=== PATIENT | male | born 1960 | race African-American/Black ===

== ENCOUNTER 2017-11-22 13:11 | Outpatient (CLI) | payer OTHER ==
--- NOTE | 2017-11-22 13:49 | RAD ---
PA AND LATERAL CHEST: HISTORY: A 57-year-old male with a history of dyspnea. FINDINGS: Heart size is at the upper range of normal. There is some very borderline thickening of the major an d minor fissures bilaterally. No confluent pneumonia, overt edema, pleural effusion, or other acute process. IMPRESSION: 1. Borderline cardiomegaly. 2. No acute intrathoracic disease. 3. Atherosclerosis of the aorta. POS: OFF
== END 2017-11-22 13:12 | disposition home or self-care (01) ==
LOC: RAD 13:11
PROVIDERS: ATTEND Internal Medicine Pulmonary Disease
DX: R06.00 Dyspnea, unspecified (principal); I70.0 Atherosclerosis of aorta
CPT/HCPCS: 71046

== ENCOUNTER 2017-12-22 13:44 | Inpatient (IN) | payer OTHER ==
[2017-12-22] MEDS ORDERED: Acetaminophen 500 MG TAB ONE (14:17)
[2017-12-22 14:23] LABS: #Lymphocytes 0.3 thou/uL (1.20-3.40); #Monocytes 0.5 thou/uL (0.11-0.59); #Neutrophils 8.9 thou/uL (1.40-6.50); %Basophils 0.3 % (0.0-1.0); %Eosinophils 0.1 % (0.0-10.0); %Lymphocytes 2.7 % (21.0-51.0); %Monocytes 5.1 % (0.0-10.0); %Neutrophils 91.7 % (42.0-75.0); Hemoglobin 8.9 g/dL (14.0-18.0); Mean Corpuscular HGB CONC 29.8 g/dL (32.0-36.0); Mean Corpuscular Hemoglobin 21.8 pg (27.0-31.0); Mean Platelet Volume 8.9 fL (7.4-10.4); Platelet Count 227 thou/uL (130-400); RBC Distribution Width 15.6 % (11.5-14.5); Red Blood Cell (RBC) Count 4.09 mill/uL (4.70-6.10); White Blood Cell (WBC) Count 9.7 thou/uL (4.8-10.8)
[2017-12-22 14:39] LABS: Anisocytosis SLIGHT = 6-15 cells (100X) (0-5/hpf); Hypochromia SLIGHT = 6-15 cells (100X) (0-5/hpf); MDiff Complete? YES; Microcytosis SLIGHT = 6-15 cells (100X) (0-5/hpf); Ovalocytes SLIGHT = 2-5 cells (100X) (0-1/hpf); PLT Morphology Comment Appears Adequate; Polychromasia SLIGHT = 2-3 cells (100X) (0-2/hpf); Tear Drops SLIGHT = 2-5 cells (100X) (0-1/hpf)
[2017-12-22 14:40] LABS: ALT (SGPT) 26 U/L (8-55); AST (SGOT) 37 U/L (5-34); Albumin 3.8 g/dL (3.5-5.0); Alkaline Phosphatase 68 U/L (40-150); Anion Gap 15 mmol/L (10-20); BUN (Urea Nitrogen) 69 mg/dL (8.4-25.7); Bilirubin, Total 0.9 mg/dL (0.2-1.2); Calc. Creatinine Clearance 0 mL/min (70-130); Calcium 8.9 mg/dL (7.8-10.44); Carbon Dioxide 25 mmol/L (22-29); Chloride 105 mmol/L (98-107); Estimated GFR-MDRD 13; Globulin 3.1 g/dL (2.4-3.5); Glucose 254 mg/dL (70-105); Potassium 4.6 mmol/L (3.5-5.1); Protein, Total 6.9 g/dL (6.0-8.3); Sodium 140 mmol/L (136-145)
[2017-12-22 14:51] LABS: CKMB 4.4 ng/mL (0-6.6)
[2017-12-22 14:53] LABS: Troponin I 0.445 ng/mL (< 0.028)
--- NOTE | 2017-12-22 14:57 | RAD ---
PORTABLE CHEST 1 VIEW: Date: 12/22/17 Time: 1427 hours HISTORY: Dyspnea. FINDINGS: Comparison made with exam of 11/22/17. The heart size is borderline. New patchy areas of consolidation are seen in the right mid and lower l claribel zones. No pneumothoraces or pleural effusions are seen. IMPRESSION: Right side pneumonia. POS: H
[2017-12-22] MEDS ORDERED: cefTRIAXone\\ROCEPHIN 2 GM VIAL ONE (15:21)
[2017-12-22] MEDS ORDERED: Azithromycin 500 MG in Sodium Chloride 0.9% 250 ML 250 ML IVPB SCH (16:30)
[2017-12-22 17:32] LABS: Bilirubin Negative (Negative); Blood, Urine Trace (Negative); Clarity CLOUDY (Clear); Glucose, Urine (Dipstick) 100 mg/dL (Negative); Leukocyte Negative (Negative); Nitrite Negative (Negative); Protein, Urine (Dipstick) > or equal to 300 mg/dL (Neg-Trace); Specific Gravity, Urine 1.015 (1.002-1.036); pH, Urine 5.5 (5.0-9.0)
[2017-12-22 17:37] LABS: Bacteria/HPF None Seen HPF (None Seen); Squamous Epithelial 0-3 HPF (0-3); WBC/HPF 0-3 HPF (0-3)
[2017-12-22 17:39] LABS: Critical Call Chem Troponin I RESULT DECREASING; Troponin I 0.418 ng/mL (< 0.028)
[2017-12-22 17:42] LABS: Pathc Cast-AUWi Flag 2.76 (0-2.49)
[2017-12-22] MEDS ORDERED: Ondansetron ODT 4 MG TAB SL PRN (17:52)
[2017-12-22] MEDS ORDERED: Ondansetron HCl/PF 4 MG/2 ML Vial IVP PRN ×2 (17:52→17:57)
[2017-12-22] MEDS ORDERED: Acetaminophen 325 MG TAB PO PRN (17:57)
[2017-12-22] MEDS ORDERED: Dextrose 5% in Water 1,000 ML IV PRN (17:57)
[2017-12-22] MEDS ORDERED: Albuterol Sulfate 2.5 mg/3 ml Neb NEB PRN (17:57)
[2017-12-22] MEDS ORDERED: Acetaminophen 650 MG Suppository PR PRN (17:57)
[2017-12-22] MEDS ORDERED: Dextrose 50% Abboject 50 ML SYRINGE SLOW IVP PRN (17:57)
[2017-12-22] MEDS ORDERED: Ondansetron ODT 4 MG TAB PO PRN (17:57)
[2017-12-22 18:00] LABS: Hyaline Casts/LPF 0-3 HYALINE CAST LPF (0-3 Hyaline); Other Casts/LPF None Seen LPF (0-3 Hyaline)
[2017-12-22] MEDS ORDERED: Epoetin (ESRD) 20,000 UNITS/ML SC SCH (18:00)
[2017-12-22] MEDS: Sodium Chloride 0.9% 1,000 ML IV SCH (18:44)
--- NOTE | 2017-12-22 18:52 | ULT ---
BILATERAL RENAL ULTRASOUND: Date: 12/22/17 HISTORY: Renal failure. COMPARISON: None. TECHNIQUE: Sagittal and transverse imaging of the kidneys performed. FINDINGS: Bilaterally, no hydronephrosis. Kidneys have a normal cortical echotexture. Right kidney measures 11. 3 x 4.8 x 5.8 cm. Left kidney measures 6.5 x 11.4 x 5.3 cm. Urinary bladder is unremarkable. Bladder volume is 173 mL. IMPRESSION: No hydronephrosis. POS: PPP
[2017-12-22] MEDS: Epoetin (ESRD) 20,000 UNITS/ML SC SCH (20:44)
[2017-12-22] MEDS: Heparin 5,000 UNITS/ML VIAL SC SCH (20:44)
[2017-12-22] MEDS: Famotidine 20 MG TAB PO SCH (20:45)
[2017-12-22] MEDS ORDERED: Montelukast Sodium 10 mg Tablet PO SCH ×2 (20:45→21:00)
[2017-12-22] MEDS: HumaLOG 300 UNITS/3 ML VIAL SC PRN (20:45)
[2017-12-22] MEDS ORDERED: Labetalol 100 MG TAB PO SCH (20:45)
[2017-12-22] MEDS ORDERED: Gabapentin 300 MG CAP PO SCH (20:45)
[2017-12-22] MEDS ORDERED: hydrALAZINE 25 MG TAB PO SCH (20:45)
[2017-12-22] MEDS: hydrALAZINE 25 MG TAB PO SCH (21:17)
[2017-12-22] MEDS: Labetalol 100 MG TAB PO SCH (21:18)
[2017-12-22] MEDS: Gabapentin 300 MG CAP PO SCH (21:18)
[2017-12-22] MEDS: hydrALAZINE 20 MG/ML VIAL SLOW IVP PRN (21:20)
[2017-12-22] MEDS: Guaifenesin DM 100-10/5 ML UDCUP PO PRN (21:20)
--- NOTE | 2017-12-23 00:31 | CON ---
DATE OF CONSULTATION: 12/22/2017 HISTORY OF PRESENT ILLNESS: Mr. Daniel is a 57-year-old, black male with known history of diabetes me llitus, hypertension, chronic renal failure, and admitted for right-sided pneumonia. The patient ___ __ follows up with his director of testing at [facility]-he follows up with [facility] where his nephrol ogist is. He was told that he has chronic renal failure, stage 3. Dr. Loo has consulted me for his acute kidney injury. He has a mildly elevated CPK at the same time. REVIEW OF SYSTEMS: Positive for mild shortness of breath. Positive for right-sided chest pain, ? of fever, no nausea, no vomiting. Decreased appetite, decreased energy level. No chest pain, no gross hematuria, no dysuria, no urinary frequency, no syncopal episode. Positive for productive cough. N o hematochezia, no melena, no dysuria, no urinary frequency. MEDICATIONS: Based on the patient's memory, he is taking atorvastatin? is taking losartan 50 mg tab daily, he is taking furosemide 80 mg p.o. b.i.d., dose of the medication could not remember, amlodipi ne 10 mg tab once a day. PAST MEDICAL HISTORY: 1. Type 2 diabetes mellitus. 2. Chronic renal failure. 3. Hypertension. 4. Diabetic retinopathy. 5. Recent diagnosis of pneumonia. PAST SURGICAL HISTORY: Status post laser therapy of both eyes, status post right shoulder joint surg rosalio. 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 He is and lives in [place]. Four children. Education, high school. Smoked f or 6 years, 4 cigarettes a day. Alcohol, one six pack per weekend. No IV drug abuse. Denies any bl ood transfusion. He has had an active lifestyle. ALLERGIES: LISINOPRIL. TRAUMA: None. IMMUNIZATIONS: Not up to date. HOSPITALIZATIONS: Please see past medical history. FAMILY HISTORY: No family history of ESRD. PHYSICAL EXAMINATION: VITAL SIGNS: Blood pressure is 157/83, heart rate 90, pulse ox 96%, respiratory rate is 12. GENERAL: Awake, comfortable, not in overt distress. SKIN: Adequate turgor. HEENT: He has pale conjunctivae, anicteric sclerae. NECK: No neck mass, no carotid bruits, no JVD. CHEST: No deformities. LUNGS: Right basilar crackles. Left, clear breath sounds. HEART: Normal sinus rhythm. No murmur, no gallops, no rubs. ABDOMEN: Globular, soft, nontender, no masses. EXTREMITIES: No edema noted. Trace edema. No deformities. NEUROLOGIC: Moving extremities. No tremors. No asterixis. No ataxia. LABORATORY DATA AND X-RAY FINDINGS: On 12/22/2017, sodium 140, potassium 4.6, chloride 105, carbon d ioxide 25, BUN 69, creatinine 5.44, glucose 254, calcium 8.9. AST 37, ALT 26, alkaline phosphatase 6 8, albumin 3.8. CK 1623. Troponin I 0.418. Globulin 6.9. White count 9.7, hemoglobin 8.9. Urine protein 205. Urine creatinine 99.1. Chest x-ray, right-sided lobe pneumonia. ASSESSMENT AND PLAN: 1. Right-sided lobe pneumonia. Continue IV antibiotics. Currently on IV azithromycin. Consider ad ding other third generation cephalosporin. 2. Acute kidney injury on top of chronic renal failure. Creatinine was noted at 5.44 and back on , it was 1.1. 3. Acute kidney injury-consider hemodynamically mediated renal dysfunction. Please note that the vito goldstein has been taking furosemide and losartan, this could be contributing to the worsening dysfunctio n. I would at least start this patient IV q.6 for the next 3 days. Hold losartan and diuretic s for the moment. 4. Anemia. Start ferrous sulfate and Epogen. I also reviewed back urinalysis with this patient. We will also be ordering a renal ultrasound. There is no indication for any emergent hemodialysis. I feel it less likely that he has myoglobinuri a ATN. However, we will review the urine sediment.
[2017-12-23] MEDS: Sodium Chloride 0.9% 1,000 ML IV SCH (02:44)
[2017-12-23] MEDS: HumaLOG 300 UNITS/3 ML VIAL SC PRN ×4 (04:55→21:19)
[2017-12-23 05:23] LABS: #Lymphocytes 0.2 thou/uL (1.20-3.40); #Monocytes 0.1 thou/uL (0.11-0.59); #Neutrophils 8.3 thou/uL (1.40-6.50); %Lymphocytes 1.8 % (21.0-51.0); %Monocytes 0.7 % (0.0-10.0); %Neutrophils 97.4 % (42.0-75.0); Hemoglobin 7.6 g/dL (14.0-18.0); Mean Corpuscular Hemoglobin 22.2 pg (27.0-31.0); Mean Corpuscular Volume 74.1 fL (78.0-98.0); Mean Platelet Volume 12.1 fL (7.4-10.4); Platelet Count 204 thou/uL (130-400); RBC Distribution Width 15.4 % (11.5-14.5); Red Blood Cell (RBC) Count 3.42 mill/uL (4.70-6.10); White Blood Cell (WBC) Count 8.5 thou/uL (4.8-10.8)
[2017-12-23 05:27] LABS: Anion Gap 18 mmol/L (10-20); BUN (Urea Nitrogen) 80 mg/dL (8.4-25.7); Calc. Creatinine Clearance 19 mL/min (70-130); Calcium 8.5 mg/dL (7.8-10.44); Carbon Dioxide 20 mmol/L (22-29); Chloride 104 mmol/L (98-107); Estimated GFR-MDRD 13; Glucose 319 mg/dL (70-105); Magnesium 1.6 mg/dL (1.6-2.6); Potassium 4.8 mmol/L (3.5-5.1); Sodium 137 mmol/L (136-145)
--- NOTE | 2017-12-23 07:31 | CON ---
DATE OF CONSULTATION: 12/22/2017 HISTORY OF PRESENT ILLNESS: This is a 57-year-old -Irish gentleman, who [facility]. He had a PFT done 4 weeks ago, which shows moderately severe COPD with an F EV1 of 1.17, which is 40% predicted. Unfortunately, when he arrived, he was short of breath. He was hypoxic. His sats are 81%. Blood pressure was 170/80, pulse was 80, respiratory rate 18. Denies a ny chest pain, chills or sweats. An x-ray in the ER was taken after he was sent down there because of his persistent hypoxemia, sats n ormal at 81% showed right-sided infiltrate. Mr. Daniel has smoked half pack a day for no more than 6 years. He tells me he has quit smoking almos t 26 years ago. 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 He had a PFT which showed an abnormality. He was sent to my office 4 weeks ago to see whether he qualify for work related issues. Obviously, his PFTs showed moderately severe mixed obstructive r estrictive impairment. He was to have a followup after he was given some medicine for that. He says he barely can walk 500 feet without getting markedly short of breath. [facility] Extensive workup has been done. He was seeing a local pharmacy clinical coordinator one time and now is seeing one in [place]. Denies any previous history of pneumonia, asthma or TB. PAST MEDICAL HISTORY: Chronic renal failure, diabetes, hypertension. PAST SURGICAL HISTORY: Shoulder and hernia surgery. ALLERGIES: LISINOPRIL. ALCOHOL: Over the weekend, 6 packs a day. MEDICATIONS: His list of medicine from home had included Lasix 80 once a day, aspirin 81, ferrous fountain lfate, labetalol 100, potassium, hydralazine 100. REVIEW OF SYSTEMS: Otherwise unremarkable. PHYSICAL EXAMINATION: GENERAL: He appeared to be in mild distress. EXTREMITIES: He has 2+ ankle edema. VITAL SIGNS: Once again, his sats 81% on room air, blood pressure 170/80, pulse rate of 18, his sats improved to 94%. CHEST: Minimal crackles without any wheezing. CARDIAC: Normal S1, S2. No gallops. ABDOMEN: Soft. No masses. LABORATORY DATA AND IMAGING: White count 9000, H&H 8 and 29, platelet count 227. His creatinine is 5.4, BUN is 61. Troponin slightly elevated. BNP 710. X-ray shows right-sided infiltrate, though he clearly has no symptoms of pneumonia. IMPRESSION: 1. Right-sided infiltrate and respiratory failure, combination of fluid overload and possibly pneumo fco. 2. Diabetes. 3. Renal failure. 4. Cardiomyopathy. PLAN: Nephrology and Cardiology has been consulted. Empiric antibiotics. Once his oxygenation impr mery, he may be discharged home.
--- NOTE | 2017-12-23 08:21 | RAD ---
PA AND LATERAL VIEWS CHEST: HISTORY: Dyspnea, shortness of breath. FINDINGS/IMPRESSION: Comparison is made to the exam of previous day. Bilateral perihilar areas of airspace disease are se en. Findings on the left are new. No pneumothoraces or large effusions are identified. POS: [facility]
[2017-12-23] MEDS: hydrALAZINE 25 MG TAB PO SCH ×3 (08:56→21:19)
[2017-12-23] MEDS: Ferrous Sulfate 325 MG TAB PO SCH ×2 (08:56→16:31)
[2017-12-23] MEDS: Gabapentin 300 MG CAP PO SCH ×3 (08:56→21:18)
[2017-12-23] MEDS: Labetalol 100 MG TAB PO SCH ×2 (08:57→21:18)
[2017-12-23] MEDS: Heparin 5,000 UNITS/ML VIAL SC SCH ×3 (08:57→21:19)
[2017-12-23] MEDS ORDERED: Prevnar 13-Val Conj/PF 0.5 ML SYRINGE IM ONE (09:00)
[2017-12-23] MEDS ORDERED: Albumin 25% 25 GM/100 ML BOT IVPB ONE (09:27)
--- NOTE | 2017-12-23 10:01 | PDOC.PN ---
- Subjective Encounter Start Date: 12/23/17 Encounter Start Time: 09:30 follow up for acute hypoxemic resp failure 100% on 3l NC, no wheezing, breathing is better, no F/c, no N/V/d/C. Pulm and renal notes reviewed, appreciate their assistance. Pt tolerating steroids and nebs. justyna Abx, on cefepime and levoflox All systems reviewed and neg x as above - Objective Resuscitation Status: Resuscitation Status FULL:Full Resuscitation MAR Reviewed: Yes Vital Signs & Weight: Vital Signs (12 hours) Temp Pulse Resp BP Pulse Ox 12/23/17 08:56 96 12/23/17 07:29 98.9 F 96 22 H 161/90 H 98 12/23/17 06:34 97 12/23/17 05:15 91 20 100 12/23/17 04:00 99.1 F 91 16 161/78 H 96 12/23/17 02:04 88 18 100 12/23/17 00:55 96 12/23/17 00:22 98.4 F 85 27 H 149/65 H 96 12/22/17 22:02 89 20 95 Weight Weight 214 lb Result Diagrams: 12/23/17 04:58 12/23/17 04:58 Additional Labs: Accuchecks 12/23/17 12/22/17 04:55 20:09 POC Glucose 361 H 227 H Phys Exam - Physical Examination Constitutional: NAD HEENT: PERRLA, moist MMs, sclera anicteric, oral pharynx no lesions Neck: no nodes, no JVD, supple, full ROM Respiratory: no wheezing, no rales, clear to auscultation bilateral Cardiovascular: RRR, no significant murmur, no rub Gastrointestinal: soft, non-tender, no distention, positive bowel sounds Musculoskeletal: edema present Neurological: non-focal, normal sensation, moves all 4 limbs Lymphatic: no nodes Psychiatric: normal affect, A&O x 3 Skin: no rash, normal turgor, cap refill <2 seconds Dx/Plan (1) Acute hypoxemic respiratory failure Code(s): J96.01 - ACUTE RESPIRATORY FAILURE WITH HYPOXIA Status: Acute (2) SHELLY (acute kidney injury) Code(s): N17.9 - ACUTE KIDNEY FAILURE, UNSPECIFIED Status: Acute (3) CKD (chronic kidney disease), stage III Code(s): N18.3 - CHRONIC KIDNEY DISEASE, STAGE 3 (MODERATE) Status: Chronic (4) HTN (hypertension) Code(s): I10 - ESSENTIAL (PRIMARY) HYPERTENSION Status: Chronic Qualifiers: Hypertension type: essential hypertension Qualified Code(s): I10 - Essential (primary) hypertension (5) DM2 (diabetes mellitus, type 2) Status: Chronic Qualifiers: Diabetes mellitus assisted insulin use: without assisted use Diabetes mellitus complication status: with kidney complications Diabetes mellitus complication detail: with chronic kidney disease Chronic kidney disease stage : stage 3 (moderate) Qualified Code(s): E11.22 - Type 2 diabetes mellitus with diabetic chronic kidney disease; N18.3 - Chronic kidney disease, stage 3 ( moderate) - Plan cont current plan of care, continue antibiotics, PT/OT, 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
--- NOTE | 2017-12-23 10:10 | PRG ---
DATE OF SERVICE: 12/23/2017 SUBJECTIVE: Mr. Daniel is a 57-year-old black male who was admitted for ? pneumonia. Case discussed with Dr. Loo. He feels that this may also be fluid. He is being empirically treated for a possible pneumonia. If needed, we can resume diuretics. However, creatinine is slightly higher today. We h ave started him on salt poor albumin 25 grams IV q.6. today. In addition, his losartan is currently on hold. No other complaints. He is feeling a little better. He still has some mild shortness of b reath. PHYSICAL EXAMINATION: VITAL SIGNS: Blood pressure 161/90, heart rate 96, respiratory rate 22, temperature 98.9, pulse ox 9 8%. GENERAL: Noted to be awake, alert, comfortable, not in overt distress. SKIN: Adequate turgor. HEENT: He has slightly pale conjunctivae, anicteric sclerae. NECK: No neck mass, no carotid bruits, no JVD. CHEST: No deformities. LUNGS: Decreased breath sounds. HEART: Normal sinus rhythm. No murmur, no gallops, no rubs. ABDOMEN: Globular, soft, nontender, no masses. EXTREMITIES: Positive for edema. MEDICATIONS: 12/23/2017 - Reviewed. LABORATORY DATA: 12/23/2017 - White count 8.5, hemoglobin 7.6. Sodium 137, potassium 4.8, chloride 104, carbon dioxide 20, BUN 80, creatinine 5.68, glucose 319, calcium 8.5, magnesium 1.6. Chest x-ray of 12/23/2017 shows bilateral perihilar areas of airspace disease. No large effusion noted. ASSESSMENT AND PLAN: 1. Shortness of breath - multifactorial etiology. Possibility of -pneumonia with or without congest laura heart failure. Continue supportive care. Continue to hold ARB due to the worsening renal dysfun ction. 2. Acute kidney injury on top of chronic renal failure - superimposed prerenal azotemia. Continue s upportive care. No indication for any emergent dialytic intervention. Start salt poor albumin 25 gr ams IV q.6 hours. 3. Anemia - Epogen has been initiated with this patient. Overall, I agree with current management. Recheck base met and CBC in a.m.
--- NOTE | 2017-12-23 10:13 | PRG ---
DATE OF SERVICE: 12/23/2017 This morning, he is feeling better. He is coughing, but his sputum is relatively clear. He denied any chest pain, chills or sweats. PHYSICAL EXAMINATION: VITAL SIGNS: On examination, sats are 98-99 on 2 liters nasal O2, blood pressure 160/90, respiration 20, temperature 98, he has got 1+ ankle edema. CHEST: No wheezing or crackles. CARDIAC: Normal S1, S2, no gallops. ABDOMEN: Soft, no masses. LABORATORY DATA: White count 8000, H&H 7 and 25, platelet count 206. He has 74 segs, but no bands. Creatinine is 5, BUN is 80. His troponin is slightly elevated. IMPRESSION: 1. Presumed right-sided pneumonia. 2. Probably fluid overload. 3. Renal failure. 4. Diabetes. 5. Hypertension. PLAN: Continue neb treatments, antibiotics. X-ray today shows diffuse pulmonary infiltrates. I thi nk more than likely this is fluid overload. Decrease the steroids. I will follow. Notify Nephrology.
[2017-12-23] MEDS: Albumin 25% 25 GM/100 ML BOT IVPB SCH ×2 (12:02→17:51)
--- NOTE | 2017-12-23 13:10 | CON ---
DATE OF CONSULTATION: 12/23/2017 CARDIOLOGY CONSULTATION REASON FOR CONSULTATION: Abnormal BNP. HISTORY OF PRESENT ILLNESS: Mr. Daniel is a very pleasant 57-year-old gentleman who I first saw back in November of this year. At that time, he was seeing me for episodes of chest wade n as well as his high blood pressure. He had a nuclear stress test performed later in November that showed no evidence of reversible ischemia, but his LV was a little dilated with an EF estimated at 4 6% at rest, went up to 50% with stress, suggestive of nonischemic cardiomyopathy. He was seen again actually yesterday, at which point, he was found to have a blood pressure that was in the 200s/70s ra nge, pulse was 114 and EKG showed sinus tachycardia. He said he was on his way to see the lung docto r as well, so he went to his pulmonary appointment with a workup pending for secondary hypertension. He was later seen by Dr. Loo who found his oxygen saturations were at 81%. He had PFTs that sugges herbert COPD, so he was transferred over to the hospital emergency room for further evaluation and care. In the ER, he was found to have a fever and admitted for possible pneumonia and COPD exacerbation. He was also found to have elevated creatinine and anemia. BNP was high as well as troponin, so [facility] is being consulted for all this. PAST MEDICAL HISTORY: 1. Resistant hypertension. 2. COPD. 3. Aortic valve insufficiency, mild to moderate. 4. Presumed nonischemic cardiomyopathy with an EF of 48%. 5. Chronic renal failure. 6. Type 2 diabetes. PAST SURGICAL HISTORY: Shoulder and hernia surgery. OUTPATIENT MEDICATIONS: Reviewed: 1. Lasix 80 mg twice a day. 2. Aspirin 81 a day. 3. Ferrous sulfate. 4. Labetalol 100 mg twice a day. 5. Potassium chloride 10 mEq a day. 6. Amlodipine 10 mg a day. 7. Tresiba. 8. Albuterol inhaler. 9. Losartan 100 mg a day. 10. Gabapentin 300 mg a day. 11. Vitamin D3. 12. Hydralazine 100 mg 3 times a day. 13. Aldactone 25 mg a day. ALLERGIES: LISINOPRIL. SOCIAL HISTORY: He drinks about 6 pack a day. No tobacco or drug use. Former smoker. REVIEW OF SYSTEMS: A 12-point review of systems was done and is all negative unless stated in the hi story of present illness. PHYSICAL EXAMINATION: VITAL SIGNS: Temperature 98.0, pulse 84, respiratory rate 16, satting 98% on 2 liters nasal cannula, blood pressure 148/80. GENERAL: Alert, awake, oriented x3, in no distress. HEENT: Normocephalic, atraumatic. NECK: Supple. LUNGS: Crackles at the right lower lobe. CARDIOVASCULAR: S1, S2. No S3, no S4. No murmurs. ABDOMEN: Soft. Positive bowel sounds. EXTREMITIES: 1+ edema. LABORATORY WORK: Reviewed. CBC with a white count of 9.7, hemoglobin of 8.9, down to 7.6, platelet count of 204,000. Chemistries, creatinine went from 5.4 up to 5.6. BNP at 700. Troponin was 0.44, 0.41. CK was 1623. Normal CK-MB. UA, yellow, cloudy. IMAGING: EKG was reviewed. Chest x-ray showed a right lower lobe pneumonia. ASSESSMENT: 1. Right lower lobe pneumonia. 2. Acute kidney injury on chronic kidney disease. 3. Non-ST elevation myocardial infarction: Likely demand ischemia from both renal dysfunction and i nfectious process. 4. Poorly controlled hypertension: Decently controlled today. 5. Elevated BNP: He does have some level of left ventricular dysfunction, thought to be related to poorly controlled hypertension. 6. Pulmonary edema. PLAN: 1. More recent chest x-ray shows evidence of pulmonary edema. This with his increase in creatinine would suggest worsening LV function and just worsening edema. Clinically, it does not seem that is a cute. At this time, we will discuss with Dr. Taylor and Dr. Loo. He may need a little diuresis to see how he does. 2. Over 30 minutes of critical care were delivered at bedside. 3. We will follow.
[2017-12-23] MEDS: cefTRIAXone\\ROCEPHIN 2 GM in Sodium Chloride 0.9% 100 ML IVPB SCH (15:23)
[2017-12-23] MEDS ORDERED: HumaLOG 300 UNITS/3 ML VIAL SC SCH (18:15)
[2017-12-23] MEDS: hydrALAZINE 20 MG/ML VIAL SLOW IVP PRN (18:53)
[2017-12-23] MEDS: Famotidine 20 MG TAB PO SCH (21:18)
[2017-12-24] MEDS: Albumin 25% 25 GM/100 ML BOT IVPB SCH ×4 (00:19→17:15)
[2017-12-24] MEDS: hydrALAZINE 20 MG/ML VIAL SLOW IVP PRN (00:20)
[2017-12-24] MEDS: Guaifenesin DM 100-10/5 ML UDCUP PO PRN ×2 (00:30→21:18)
[2017-12-24] MEDS: HumaLOG 300 UNITS/3 ML VIAL SC PRN ×4 (06:04→21:21)
[2017-12-24 06:25] LABS: #Lymphocytes 0.2 thou/uL (1.20-3.40); #Monocytes 0.2 thou/uL (0.11-0.59); #Neutrophils 11.9 thou/uL (1.40-6.50); %Basophils 0.1 % (0.0-1.0); %Lymphocytes 1.8 % (21.0-51.0); %Monocytes 1.9 % (0.0-10.0); %Neutrophils 96.3 % (42.0-75.0); Hemoglobin 7.3 g/dL (14.0-18.0); Mean Corpuscular HGB CONC 30.3 g/dL (32.0-36.0); Mean Corpuscular Hemoglobin 22.1 pg (27.0-31.0); Mean Platelet Volume 11.6 fL (7.4-10.4); Platelet Count 237 thou/uL (130-400); RBC Distribution Width 15.2 % (11.5-14.5); Red Blood Cell (RBC) Count 3.29 mill/uL (4.70-6.10); White Blood Cell (WBC) Count 12.3 thou/uL (4.8-10.8)
[2017-12-24 06:31] LABS: Anion Gap 19 mmol/L (10-20); BUN (Urea Nitrogen) 105 mg/dL (8.4-25.7); Calc. Creatinine Clearance 17 mL/min (70-130); Calcium 8.8 mg/dL (7.8-10.44); Carbon Dioxide 20 mmol/L (22-29); Chloride 102 mmol/L (98-107); Estimated GFR-MDRD 11; Glucose 248 mg/dL (70-105); Potassium 4.6 mmol/L (3.5-5.1); Sodium 136 mmol/L (136-145)
[2017-12-24] MEDS: Heparin 5,000 UNITS/ML VIAL SC SCH ×3 (09:13→21:20)
[2017-12-24] MEDS: Labetalol 100 MG TAB PO SCH ×2 (09:14→21:21)
[2017-12-24] MEDS: Gabapentin 300 MG CAP PO SCH ×3 (09:14→21:20)
[2017-12-24] MEDS: Ferrous Sulfate 325 MG TAB PO SCH ×2 (09:14→17:14)
[2017-12-24] MEDS: hydrALAZINE 25 MG TAB PO SCH ×3 (09:14→21:20)
--- NOTE | 2017-12-24 11:52 | PRG ---
DATE OF SERVICE: 12/24/2017 SERVICE: Renal Medicine. SUBJECTIVE: Mr. Daniel is a 57-year-old black male who was seen for his acute kidney injury on top of his chronic renal failure. Renal function continues to worsen. He was initially admitted for possi ble pneumonia. However, chest x-ray was reviewed and suggested he may have some fluid. Cardiac echo was done, which showed a normal EF. He voices no new complaints today. PHYSICAL EXAMINATION: VITAL SIGNS: Blood pressure is 163/83, heart rate 88, respiratory rate 20, O2 sat 96%. GENERAL: Awake, alert, supine, comfortable, not in overt distress. SKIN: Adequate turgor. HEENT: Pale conjunctivae, anicteric sclerae. NECK: No neck mass, no carotid bruits, no JVD. CHEST: No deformities. LUNGS: Decreased breath sounds. HEART: Normal sinus rhythm. No murmur, no gallops or rubs. ABDOMEN: Globular, soft, nontender, no masses. EXTREMITIES: Trace edema. MEDICATIONS: Of 12/24/2017 was reviewed. LABORATORY DATA: Of 12/24/2017, shows white count of 12.3, hemoglobin 7.3. Sodium 136, potassium 4. 6, chloride 102, carbon dioxide 20, BUN 105, creatinine 6.6, glucose 248, calcium 8.8. ASSESSMENT AND PLAN: Acute kidney injury on top of his chronic renal failure, worsening renal dysfun ction. The possibility that he may have a superimposed acute tubular necrosis remains. Please note cardiac echo showed a normal EF. Due to the proteinuria, I have decided to rule out vasculitis with this patient. ANCA and ZAC will be ordered. A close differential for the worsening of renal dysfunc tion is that he may have a superimposed acute tubular necrosis. We will plan dialysis with this jael ent. Please note that I have discussed that possibility with the patient. Overall, agree with current management. We will recheck base met and CBC in a.m.
[2017-12-24] MEDS: cefTRIAXone\\ROCEPHIN 2 GM in Sodium Chloride 0.9% 100 ML IVPB SCH (15:16)
--- NOTE | 2017-12-24 15:55 | PRG ---
DATE OF SERVICE: 12/24/2017 SUBJECTIVE: The patient is doing better, breathing is better. OBJECTIVE: VITAL SIGNS: Temperature 98.9, pulse 82, respiration 16, O2 sat 99% on 2 liters, blood pressure 154/ 86. HEENT: Unremarkable. NECK: No JVD. LUNGS: Diminished breath sounds in the bases. CARDIAC: S1 and S2 regular. ABDOMEN: Soft. EXTREMITIES: Edematous. LABORATORY DATA: White blood cell count 12.3, hematocrit 24, platelet count 237. Sodium 136, potass ium 4.6, chloride 102, CO2 of 20, BUN 105, creatinine 6.6, glucose 248. ASSESSMENT: 1. Right-sided pneumonia. 2. Fluid overload. 3. Renal failure. 4. Diabetes. 5. Hypertension. PLAN: He is continuing antibiotics and steroids, in all likelihood, he will need dialysis.
--- NOTE | 2017-12-24 15:58 | PDOC.PN ---
- Subjective Encounter Start Date: 12/24/17 Encounter Start Time: 13:50 doing well. still SOB, renal me be prepping for HD No F/C, no N/V/D/C, no CP. +WILSON All systems reviewed adn neg x as above urinating well. in shower now - Objective Resuscitation Status: Resuscitation Status FULL:Full Resuscitation MAR Reviewed: Yes Vital Signs & Weight: Vital Signs (12 hours) Temp Pulse Resp BP BP Pulse Ox 12/24/17 15:12 154/73 H 12/24/17 12:53 82 16 99 12/24/17 11:22 98.9 F 84 20 154/86 H 100 12/24/17 09:14 88 12/24/17 07:59 99.1 F 88 20 163/83 H 96 12/24/17 06:37 95 12/24/17 06:35 90 18 95 12/24/17 04:00 97.3 F L 91 21 H 145/69 H 94 L Weight Weight 214 lb Result Diagrams: 12/24/17 06:10 12/24/17 06:10 Additional Labs: Accuchecks 12/24/17 12/24/17 12/23/17 11:18 05:56 20:00 POC Glucose 297 H 223 H 252 H 12/23/17 12/23/17 17:51 16:24 POC Glucose 357 H 450 H Phys Exam - Physical Examination Constitutional: NAD HEENT: PERRLA, moist MMs, sclera anicteric, oral pharynx no lesions Neck: no nodes, supple, full ROM +JVD coarse bilateral basilar rales Cardiovascular: RRR 3/6 HSM to RLSB Gastrointestinal: soft, non-tender, no distention, positive bowel sounds Musculoskeletal: edema present Neurological: non-focal, normal sensation, moves all 4 limbs Lymphatic: no nodes Psychiatric: normal affect, A&O x 3 Skin: no rash, normal turgor, cap refill <2 seconds Dx/Plan (1) Acute hypoxemic respiratory failure Code(s): J96.01 - ACUTE RESPIRATORY FAILURE WITH HYPOXIA Status: Acute (2) SHELLY (acute kidney injury) Code(s): N17.9 - ACUTE KIDNEY FAILURE, UNSPECIFIED Status: Acute (3) CKD (chronic kidney disease), stage III Code(s): N18.3 - CHRONIC KIDNEY DISEASE, STAGE 3 (MODERATE) Status: Chronic (4) HTN (hypertension) Code(s): I10 - ESSENTIAL (PRIMARY) HYPERTENSION Status: Chronic Qualifiers: Hypertension type: essential hypertension Qualified Code(s): I10 - Essential (primary) hypertension (5) DM2 (diabetes mellitus, type 2) Status: Chronic Qualifiers: Diabetes mellitus correction insulin use: without long term care pharmacist use Diabetes mellitus complication status: with kidney complications Diabetes mellitus complication detail: with chronic kidney disease Chronic kidney disease stage : stage 3 (moderate) Qualified Code(s): E11.22 - Type 2 diabetes mellitus with diabetic chronic kidney disease; N18.3 - Chronic kidney disease, stage 3 ( moderate) - Plan * .
[2017-12-24] MEDS: Famotidine 20 MG TAB PO SCH (21:20)
[2017-12-25] MEDS: Albumin 25% 25 GM/100 ML BOT IVPB SCH ×4 (00:54→17:05)
[2017-12-25 05:55] LABS: #Lymphocytes 0.3 thou/uL (1.20-3.40); #Monocytes 0.2 thou/uL (0.11-0.59); #Neutrophils 9.2 thou/uL (1.40-6.50); %Basophils 0.5 % (0.0-1.0); %Eosinophils 0.1 % (0.0-10.0); %Lymphocytes 2.9 % (21.0-51.0); %Monocytes 2.4 % (0.0-10.0); %Neutrophils 94.2 % (42.0-75.0); Hemoglobin 7.3 g/dL (14.0-18.0); Mean Corpuscular HGB CONC 30.2 g/dL (32.0-36.0); Mean Corpuscular Hemoglobin 21.9 pg (27.0-31.0); Mean Corpuscular Volume 72.4 fL (78.0-98.0); Mean Platelet Volume 11.6 fL (7.4-10.4); Platelet Count 200 thou/uL (130-400); RBC Distribution Width 15.6 % (11.5-14.5); Red Blood Cell (RBC) Count 3.32 mill/uL (4.70-6.10); White Blood Cell (WBC) Count 9.7 thou/uL (4.8-10.8)
[2017-12-25 06:06] LABS: Anion Gap 21 mmol/L (10-20); Calc. Creatinine Clearance 15 mL/min (70-130); Calcium 8.7 mg/dL (7.8-10.44); Carbon Dioxide 17 mmol/L (22-29); Chloride 99 mmol/L (98-107); Estimated GFR-MDRD 9; Glucose 330 mg/dL (70-105); Potassium 5.3 mmol/L (3.5-5.1); Sodium 132 mmol/L (136-145)
[2017-12-25 06:17] LABS: BUN (Urea Nitrogen) 125 mg/dL (8.4-25.7)
[2017-12-25] MEDS: HumaLOG 300 UNITS/3 ML VIAL SC PRN ×4 (06:17→20:11)
[2017-12-25] MEDS: Ferrous Sulfate 325 MG TAB PO SCH ×2 (08:14→16:31)
[2017-12-25] MEDS: Heparin 5,000 UNITS/ML VIAL SC SCH ×3 (08:14→20:11)
[2017-12-25] MEDS: Gabapentin 300 MG CAP PO SCH ×3 (08:14→20:10)
[2017-12-25] MEDS: hydrALAZINE 25 MG TAB PO SCH ×3 (08:15→20:10)
[2017-12-25] MEDS: Labetalol 100 MG TAB PO SCH ×2 (08:15→20:09)
[2017-12-25] MEDS ORDERED: Furosemide 100 MG/10 ML VIAL SLOW IVP SCH (11:30)
--- NOTE | 2017-12-25 11:43 | PRG ---
DATE OF SERVICE: 12/25/2017 RENAL MEDICINE SUBJECTIVE: Mr. Daniel is a 57-year-old black male who was initially admitted for pneumonia. However , further evaluation of the shortness of breath suggests he may have CHF. Of interest, a cardiac ech o showed normal EF. This morning, he is complaining of shortness of breath. Please note we are foll owing up this patient for his acute kidney injury on top of his chronic renal failure. His renal ult rasound did not show any obstruction. In addition, the urinalysis showed urine protein was greater t nath 300. His renal function continues to worsen. Due to the shortness of breath, we will give him one-time dose of Lasix 80 mg IV daily. Please note that I have discussed the dialysis with the patient. He is still hesitant to proceed with it. 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 I will try to get in touch with silva bolden in the morning. PHYSICAL EXAMINATION: VITAL SIGNS: Blood pressure 168/84, heart rate 70, respiratory rate 20, temperature 98, pulse ox 95% . GENERAL: Noted to be awake, sitting comfortable, not in overt distress. SKIN: Adequate turgor. HEENT: He has slightly pale conjunctivae, anicteric sclerae. NECK: No neck mass, no carotid bruits, no JVD. CHEST: No deformities. LUNGS: Decreased breath sounds. No wheezing, no crackles. HEART: Normal sinus rhythm. No murmur, no gallops, no rubs. ABDOMEN: Globular, soft, nontender. EXTREMITIES: Positive for edema. MEDICATIONS: Medications of 12/25/2017 was reviewed. LABORATORY DATA: Laboratories of 12/25/2017; white count 9.7, hemoglobin 7.3. Sodium 132, potassium 5.3, chloride 99, carbon dioxide 17, BUN 125, creatinine 7.48, calcium 8.7. ASSESSMENT AND PLAN: 1. Acute kidney injury on top of his chronic renal failure - consideration for hemodynamically media herbert renal dysfunction versus early acute tubular necrosis. Lasix 80 mg IV x1 dose will be given. I did discuss about dialysis. The patient says him to initiate dialysis without any talking with his n ephrologist. 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 Richmond tomorrow when his office is [facility]. I asked the to text me the office number of his track subway repair supervisor. 2. Shortness of breath, multifactorial etiology. Initially, thought he may have pneumonia. He is b eing empirically treated with antibiotics. However, congestive heart failure is consideration. We w ill give a one-time dose of Lasix 80 mg IV now. 3. Anemia, started on weekly Epogen. Overall, agree with current management.
--- NOTE | 2017-12-25 13:09 | PRG ---
DATE OF SERVICE: 12/25/2017 SUBJECTIVE: The patient feels better. He says he cannot breathe as long as he is wearing the oxygen . PHYSICAL EXAMINATION: VITAL SIGNS: Temperature 98.0, pulse 78, respirations 20, O2 sat 95% on 2 liters, blood pressure 160 /84. HEENT: Unremarkable. NECK: No adenopathy, JVD, or bruits. LUNGS: Inspiratory crackles both bases. CARDIOVASCULAR: S1, S2 regular. ABDOMEN: Soft. EXTREMITIES: Edematous. LABORATORY DATA: White blood cell count 9.7, hematocrit 24.1, platelet count 200. Sodium 132, potas sium 5.3, chloride 99, CO2 of 17, BUN 125, creatinine 7.4, glucose 330. ASSESSMENT: 1. Progressive acute on chronic renal failure. 2. Right-sided pneumonia. 3. Fluid overload. 4. Diabetes. PLAN: My guess would be what we are looking at is fluid overload. He will need dialysis at some poi nt. He is continuing antibiotics for the time being, although I think this is more fluid than anythi ng else. From my standpoint, he can be transferred out to the telemetry unit or the medical floor.
[2017-12-25] MEDS: cefTRIAXone\\ROCEPHIN 2 GM in Sodium Chloride 0.9% 100 ML IVPB SCH (14:52)
--- NOTE | 2017-12-25 15:32 | PDOC.PN ---
- Subjective Encounter Start Date: 12/25/17 Encounter Start Time: 11:15 - Objective Resuscitation Status: Resuscitation Status FULL:Full Resuscitation MAR Reviewed: Yes Vital Signs & Weight: Vital Signs (12 hours) Temp Pulse Resp BP BP BP Pulse Ox 12/25/17 14:52 81 12/25/17 14:50 97.6 F 81 18 168/91 H 97 12/25/17 13:34 76 16 12/25/17 10:58 98.0 F 78 20 168/84 H 95 12/25/17 10:00 78 162/90 H 12/25/17 08:15 81 175/85 H 12/25/17 08:00 95 12/25/17 07:58 81 15 96 12/25/17 07:38 93 L 12/25/17 07:07 98.3 F 78 18 155/79 H 93 L 12/25/17 03:58 97.9 F 79 20 150/78 H 90 L Weight Weight 214 lb I&O: 12/24/17 12/25/17 12/26/17 06:59 06:59 06:59 Intake Total 750 840 Output Total 600 Balance 150 840 Result Diagrams: 12/25/17 05:39 12/25/17 05:39 Additional Labs: Accuchecks 12/25/17 12/25/17 12/24/17 10:51 05:30 21:06 POC Glucose 411 H 332 H 296 H 12/24/17 17:19 POC Glucose 383 H Phys Exam - Physical Examination Constitutional: NAD HEENT: PERRLA, moist MMs, sclera anicteric, oral pharynx no lesions NC in place Neck: no nodes, no JVD, supple, full ROM Respiratory: no rales, no rhonchi slightly prolong exp, exp wheezes, bibasialr rales Cardiovascular: RRR, no significant murmur, no rub Gastrointestinal: soft, non-tender, no distention, positive bowel sounds Musculoskeletal: edema present Neurological: non-focal, normal sensation, moves all 4 limbs Lymphatic: no nodes Psychiatric: normal affect, A&O x 3 Skin: no rash, normal turgor, cap refill <2 seconds Dx/Plan (1) Acute hypoxemic respiratory failure Code(s): J96.01 - ACUTE RESPIRATORY FAILURE WITH HYPOXIA Status: Acute Comment: secondary to volume overload, CAP (2) SHELLY (acute kidney injury) Code(s): N17.9 - ACUTE KIDNEY FAILURE, UNSPECIFIED Status: Acute Comment: with met acidosis and volume overload. 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
[2017-12-25] MEDS ORDERED: Insulin Glargine 10 UNITS in Pre-Filled Syringe 1 EACH SC SCH (15:45)
[2017-12-25 15:50] LABS: ANA Symphony (Qualitative) Negative (Negative); dsDNA IgG Antibody Less than 0.5 IU/mL (<10 Negative)
[2017-12-25] MEDS ORDERED: NIFEdipine XL 30 MG TAB PO SCH (16:30)
[2017-12-25] MEDS ORDERED: DOPamine 400 MG/D5W 250 ML 250 ML ONE (18:18)
--- NOTE | 2017-12-25 18:36 | PDOC.EVN ---
Event Note - Event Note Event Note: see tiffani elmer record. tiffani payne called dustin 1800. Pt was being trasnferred to floor to [facility], and on route, he cebame unresponsive. Eval on arrival showel low BP, and fluids were initially started. repeat BP was elevate dinstead, fluids stops. bt was incontinent, but no tonic-clonic acitvity. he spontaneously came to, Ox3, about 20 minutes later. BMP, CBC, cardiac provile, prolactin, mag are pending
[2017-12-25 18:56] LABS: Anion Gap 23 mmol/L (10-20); Calc. Creatinine Clearance 14 mL/min (70-130); Calcium 8.7 mg/dL (7.8-10.44); Carbon Dioxide 18 mmol/L (22-29); Chloride 98 mmol/L (98-107); Estimated GFR-MDRD 8; Glucose 341 mg/dL (70-105); Magnesium 2.3 mg/dL (1.6-2.6); Potassium 5.1 mmol/L (3.5-5.1); Sodium 134 mmol/L (136-145)
[2017-12-25 19:00] LABS: Hemoglobin 7.6 g/dL (14.0-18.0); Mean Corpuscular HGB CONC 30.6 g/dL (32.0-36.0); Mean Corpuscular Volume 71.8 fL (78.0-98.0); Mean Platelet Volume 7.7 fL (7.4-10.4); Platelet Count 225 thou/uL (130-400); RBC Distribution Width 15.4 % (11.5-14.5); Red Blood Cell (RBC) Count 3.47 mill/uL (4.70-6.10); White Blood Cell (WBC) Count 9.6 thou/uL (4.8-10.8)
[2017-12-25 19:03] LABS: Troponin I 0.071 ng/mL (< 0.028)
[2017-12-25 19:07] LABS: BUN (Urea Nitrogen) 140 mg/dL (8.4-25.7)
[2017-12-25 19:08] LABS: CKMB 14.6 ng/mL (0-6.6)
[2017-12-25 19:24] LABS: #Basophils 0.1 thou/uL (0.0-0.2); #Lymphocytes 0.5 thou/uL (1.20-3.40); #Monocytes 0.4 thou/uL (0.11-0.59); #Neutrophils 8.6 thou/uL (1.40-6.50); %Basophils 1.3 % (0.0-1.0); %Eosinophils 0.2 % (0.0-10.0); %Lymphocytes 5.2 % (21.0-51.0); %Monocytes 3.6 % (0.0-10.0); %Neutrophils 89.7 % (42.0-75.0); Hypochromia SLIGHT = 6-15 cells (100X) (0-5/hpf); MDiff Complete? YES; Microcytosis SLIGHT = 6-15 cells (100X) (0-5/hpf); Ovalocytes MODERATE= 6-15 cells (100X) (0-1/hpf); PLT Morphology Comment Appears Adequate; Polychromasia SLIGHT = 2-3 cells (100X) (0-2/hpf)
[2017-12-25] MEDS: Famotidine 20 MG TAB PO SCH (20:11)
[2017-12-26] MEDS: Albumin 25% 25 GM/100 ML BOT IVPB SCH ×2 (00:37→05:34)
[2017-12-26] MEDS ORDERED: Furosemide 40 MG/4 ML VIAL SLOW IVP SCH (02:15)
[2017-12-26 04:45] LABS: Anion Gap 25 mmol/L (10-20); Calc. Creatinine Clearance 13 mL/min (70-130); Calcium 8.5 mg/dL (7.8-10.44); Carbon Dioxide 18 mmol/L (22-29); Chloride 97 mmol/L (98-107); Estimated GFR-MDRD 8; Glucose 370 mg/dL (70-105); Potassium 5.8 mmol/L (3.5-5.1); Sodium 134 mmol/L (136-145)
[2017-12-26 04:57] LABS: BUN (Urea Nitrogen) 157 mg/dL (8.4-25.7)
[2017-12-26 05:09] LABS: Anisocytosis SLIGHT = 6-15 cells (100X) (0-5/hpf); Hemoglobin 6.9 g/dL (14.0-18.0); Hypochromia MODERATE=16-30 cells (100X) (0-5/hpf); Lymphocytes 3 % (21-51); MDiff Complete? YES; Mean Corpuscular HGB CONC 30.6 g/dL (32.0-36.0); Mean Corpuscular Hemoglobin 21.8 pg (27.0-31.0); Mean Corpuscular Volume 71.4 fL (78.0-98.0); Mean Platelet Volume 10.4 fL (7.4-10.4); Monocytes 2 % (0-10); Neutrophil 95 % (42-75); Nucleated RBC 1 % (0); PLT Morphology Comment Appears Adequate; Platelet Count 203 thou/uL (130-400); Polychromasia SLIGHT = 2-3 cells (100X) (0-2/hpf); RBC Distribution Width 15.4 % (11.5-14.5); Red Blood Cell (RBC) Count 3.15 mill/uL (4.70-6.10); White Blood Cell (WBC) Count 9.3 thou/uL (4.8-10.8)
[2017-12-26] MEDS: HumaLOG 300 UNITS/3 ML VIAL SC PRN ×3 (05:35→16:44)
[2017-12-26] MEDS ORDERED: Furosemide 100 MG/10 ML VIAL IVPB SCH (08:30)
[2017-12-26] MEDS: Gabapentin 300 MG CAP PO SCH ×3 (08:37→21:06)
[2017-12-26] MEDS: Labetalol 100 MG TAB PO SCH ×2 (08:38→21:05)
[2017-12-26] MEDS: Insulin Glargine 10 UNITS in Pre-Filled Syringe 1 EACH SC SCH (08:38)
[2017-12-26] MEDS: NIFEdipine XL 30 MG TAB PO SCH ×2 (08:39→10:46)
[2017-12-26] MEDS: hydrALAZINE 25 MG TAB PO SCH ×3 (08:39→21:51)
[2017-12-26] MEDS: Ferrous Sulfate 325 MG TAB PO SCH ×2 (08:40→16:16)
[2017-12-26] MEDS: Heparin 5,000 UNITS/ML VIAL SC SCH ×3 (08:54→21:07)
--- NOTE | 2017-12-26 08:59 | PRG ---
DATE OF SERVICE: 12/26/2017 The patient is doing reasonably well, has no complaints except for shortness of breath. He had to be put on BiPAP last night. PHYSICAL EXAMINATION: VITAL SIGNS: His temperature is 99.8, pulse 72, blood pressure 130/84, O2 saturation 98%, blood pres sure 142/74. Total intake for 24 hours 2549, output 150. HEENT: Unremarkable. NECK: No adenopathy or JVD. LUNGS: Coarse rhonchi bilaterally. CARDIOVASCULAR: S1, S2 regular. ABDOMEN: Soft. EXTREMITIES: Edematous throughout. LABORATORY DATA: White blood cell count 9.3, hematocrit 22.5, platelet count 203. Sodium 134, potas sium 5.8, chloride 97, CO2 18, BUN 157, creatinine 8.7, glucose 396. ASSESSMENT: 1. Acute on chronic renal failure. 2. Diabetes mellitus. 3. Acute hypoxic respiratory failure secondary to fluid overload. PLAN: The bottom line is that this patient needs acute hemodialysis. He is fluid overloaded and he is not eliminating urine, otherwise. He understands that. I believe he is having vas cath placed th is morning and will undergo hemodialysis shortly thereafter.
--- NOTE | 2017-12-26 09:44 | PRG ---
DATE OF SERVICE: 12/26/2017 Mr. Daniel is a 57-year-old black male, who was seen by the Renal service for his acute kidney injury on top of his chronic renal failure. Renal function has been worsening over the last several days. Yesterday, he was found to be in volume overload. He was given a one-time dose of Lasix 80 mg. In a ddition, last night he had to be placed on BiPAP due to the worsening respiratory dysfunction. I hav e spoken again with the patient and his and they finally have agreed to proceed with dialysis. His creatinine has further worsened this morning. His creatinine now is noted at 8.79 with a BUN of 157. We have consulted Dr. Cottrell for placement of temporary dialysis catheter. The patient is complaining of some shortness of breath. OBJECTIVE: VITAL SIGNS: Blood pressure is 138/84, heart rate 72, respiratory rate 19, temperature 98.8, pulse o x 98%. GENERAL EXAM: Noted to be awake, sitting, in mild respiratory distress. SKIN: Adequate turgor. HEENT: He has pale conjunctivae, anicteric sclerae. NECK: No neck mass, no carotid bruits, no JVD. CHEST: No deformities. LUNGS: Decreased breath sounds. Positive for wheezing. HEART: Normal sinus rhythm. No murmur, no gallops, no rubs. ABDOMEN: Globular, soft, nontender, no masses. EXTREMITIES: Positive for edema. Medications of 12/26/2017 reviewed. LABORATORY DATA: Laboratories of 12/26/2017, sodium 134, potassium 4.8, chloride 97, carbon dioxide 18, BUN 157, creatinine 8.79, glucose 370, calcium 8.5, prolactin 15.44. ASSESSMENT AND PLAN: 1. Acute kidney injury on top of his chronic renal failure - we will initiate dialysis. The patient has agreed to proceed with dialysis. Surgery has been consulted for placement of a temporary dialys is catheter. We will max out fluid removal with the current dialysis regimen. 2. Anemia. The patient is currently on weekly Epogen. P.r.n. blood transfusion. 3. Acute respiratory failure. Lasix 80 mg IV was given again this morning. He will undergo dialysi s today.
[2017-12-26 10:55] LABS: HBSAg Index 0.17 S/CO (0-0.99); Hep B Surf Ag Non-Reactive S/CO (NonReactive)
[2017-12-26 10:56] LABS: Hep C IgG Ab Non-Reactive (NonReactive); Hep C Index 0.12 S/CO (0-0.79)
--- NOTE | 2017-12-26 15:16 | ULT ---
BILATERAL UPPER EXTREMITY VEIN MAPPING ULTRASOUND EXAMINATION: HISTORY: End state renal disease, dialysis access. FINDINGS: RIGHT: CEPHALIC VEIN: Proximal humerus 1.6 mm Mid 1.3 mm Distal 1.7 mm Elbow thrombosed Proximal forearm thrombosed Mid thrombosed Distal thrombosed. BASILIC VEIN: Proximal humerus 2.9 mm Mid humerus 2.6 mm Distal 3.0 mm Elbow 3.3 mm Proximal forearm 0.9 mm Mid 1.1 mm Distal 1.8 mm LEFT: CEPHALIC VEIN: Proximal humerus 4.3 mm Mid humerus 1.2 mm Distal 0.8 mm Elbow 0.9 mm Proximal forearm 0.6 mm Mid 0.8 mm Distal 0.6 mm BASILIC VEIN: Proximal humerus 5.8 mm Mid humerus 4.4 mm Distal 1.7 mm Elbow 2.6 mm Proximal forearm 0.8 mm Mid 0.5 mm Distal 0.5 mm Right brachial artery4.0 mm. Right radial artery 2.3 mm. Right ulnar artery 2.0 mm Left brachial artery 4.8 mm Left radial artery 2.1 mm Left ulnar artery 1.4 mm IMPRESSION: Vein mapping as discussed above. POS: [facility]
[2017-12-26] MEDS: cefTRIAXone\\ROCEPHIN 2 GM in Sodium Chloride 0.9% 100 ML IVPB SCH (16:15)
--- NOTE | 2017-12-26 21:04 | OP ---
PREOPERATIVE DIAGNOSIS: End-stage renal disease in need of dialysis access on BiPAP over the weekend . POSTOPERATIVE DIAGNOSIS: End-stage renal disease in need of dialysis access on BiPAP over the weeken d. PROCEDURE: Right groin Trialysis catheter. SURGEON: Dr. Srinivas Cottrell. ANESTHESIA: 1% Xylocaine. PROCEDURE: The patient at bedside, right groin was clipped of hair, prepared with ChloraPrep, draped in routine fashion. Local anesthetic was infiltrated into the skin and subcutaneous tissue and the Salinger technique, the Trialysis catheter placed and removed the J-wire, securing the catheter with 3-0 nylon suture. Sterile dressings applied. Each port aspirated for blood and flushed with heparin ized saline solution. Patient tolerated the procedure.
[2017-12-26] MEDS: Famotidine 20 MG TAB PO SCH (21:06)
--- NOTE | 2017-12-26 21:51 | HP ---
HISTORY OF PRESENT ILLNESS: Silvana Daniel is a 57-year-old black male who lives in [place]. He i s followed by Dr. Cheng. He has been admitted and seen by Dr. Taylor, admitted to the hospitalist, Dr Vcik Banuelos was also seen him. 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 He has been followed for chron ic kidney disease. Over the weekend, he has been on BiPAP. I then asked by Dr. Taylor to establish hem odialysis access. Dr. Frey has also being seen him. Plan at this time due to his acute fluid ove rload is to place a temporary dialysis catheter. He had a midline IV placed, sutures removed. Proxi mal forearm IV placed, removed. He has bandage over indicative of recent blood draws. These h ave all been removed. Plan is to place a Trialysis catheter right groin, preserve his veins for futu re dialysis access and place hemodialysis catheter, possible central line in the fistula in the next few days. The patient has had ultrasound vein mapping results of which are pending. Dr. Loo has se en him on admission, has followed him as an outpatient. 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 ALLERGIES: LISINOPRIL. TOBACCO: None. ALCOHOL: None. HOME MEDICATIONS: Include insulin, albuterol, furosemide, labetalol, amlodipine, hydralazine, losart an, ferrous sulfate, aspirin, gabapentin. SOCIAL HISTORY: Tobacco, 1/2 pack per day for more than 6 years, quit smoking 26 years ago. PAST SURGICAL HISTORY: Groin hernia as a child, shoulder surgery. PAST MEDICAL HISTORY: Chronic renal failure, diabetes, hypertension, end-stage renal disease. Dr. Patricia liao has seen him for resistant hypertension, aortic valve insufficiency, mild to moderate presumed nonischemic cardiomyopathy, EF 48%. The patient reports having had a cardiac stress test in Dr. Krishna lara's office last month that was normal. PHYSICAL EXAMINATION: VITAL SIGNS: Height 5 feet 6 inches, weight 224 pounds, 36 BMI, temperature 97.2, pulse 72, blood pr essure 131/71. HEENT: Unremarkable. LUNGS: Clear to auscultation. CARDIAC: Regular rate and rhythm without murmur or gallop. ABDOMEN: Soft, obese, nontender. EXTREMITIES: Unremarkable. LABORATORY DATA: The patient's white count 9, hemoglobin 6.9. Sodium 134, potassium 5.8, BUN 157, c reatinine 8.79, GFR 8. Marking ultrasound obtained and pending. ASSESSMENT AND PLAN: 1. End-stage renal disease in need of dialysis access. We will plan placement of temporary groin di alysis catheter. We will plan placement of a more permanent hemodialysis cuffed tunnel catheter and a central line and dialysis access peripherally in his right arm as he is left handed pending v ein mapping in the next few days. We will avoid IV access in the antecubital area. 2. Hypertension. 3. Diabetes. 4. Recent access midline, removed. 5. Obesity.
--- NOTE | 2017-12-26 23:09 | PDOC.PN ---
- Subjective Encounter Start Date: 12/26/17 Encounter Start Time: 19:00 Patient seen and examined for resp failure. No new complaints. No overnight events - Objective Resuscitation Status: Resuscitation Status FULL:Full Resuscitation MAR Reviewed: Yes Vital Signs & Weight: Vital Signs (12 hours) Temp Pulse Resp BP BP Pulse Ox 12/26/17 21:51 84 173/77 H 12/26/17 21:05 85 182/92 H 12/26/17 19:33 97.4 F L 83 36 H 182/92 H 96 12/26/17 18:16 76 24 H 95 12/26/17 16:16 76 176/85 H 12/26/17 15:30 98.0 F 73 20 159/78 H 100 12/26/17 14:45 99 12/26/17 14:42 67 28 H 99 12/26/17 14:36 66 20 149/84 H 97 12/26/17 11:49 98 Weight Weight 224 lb 12.8 oz I&O: 12/25/17 12/26/17 12/27/17 06:59 06:59 06:59 Intake Total 750 2549 674 Output Total 600 150 925 Balance 150 7219 -902 Result Diagrams: 12/26/17 04:25 12/26/17 04:25 Additional Labs: Accuchecks 12/26/17 12/26/17 12/26/17 19:55 16:39 10:35 POC Glucose 268 H 224 H 340 H 12/26/17 05:34 POC Glucose 396 H EKG Reviewed by me: Yes (Tele SR) Phys Exam - Physical Examination Constitutional: NAD Respiratory: no wheezing, no rhonchi Cardiovascular: RRR, no rub Gastrointestinal: soft, positive bowel sounds Musculoskeletal: edema present Dx/Plan - Plan DVT proph w/heparin, DVT proph w/SCDs IMPRESSION: 1. Acute hypoxic respiratory failure due to volume overload 2. SHELLY/CKD 3 / Hyperkalemia - started on dialysis 3. Elevated troponins due to demand ischemia 4. HTN/ DM2 / Anemia due to chronic renal disease s/p 1 unit PRBC 5. s/p Code green for Hypotension with Toxic Metabolic Encephalopathy PLAN: s/p dialysis with 1 unit PRBC Cont to monitor Cont Atbx/Steroids Cont other meds as below AM labs Review of Systems - Review of Systems Respiratory: negative: Cough, Dry, Shortness of Breath, Hemoptysis, SOB with Excertion, Pleuritic Pain, Sputum, Wheezing Cardiovascular: negative: chest pain, palpitations, orthopnea, paroxysmal nocturnal dyspnea, edema, light headedness, other - Medications/Allergies Allergies/Adverse Reactions: Allergies Allergy/AdvReac Type Severity Reaction Status Date / Time lisinopril Allergy Verified 12/22/17 18:04 Medications: Current Medications Acetaminophen (Tylenol) 650 mg PO Q4H PRN PRN Reason: Headache/Fever/Mild Pain (1-3) Last Admin: 12/22/17 20:45 Dose: 650 mg Acetaminophen (Tylenol) 650 mg IA Q4H PRN PRN Reason: Headache/Fever/Mild Pain (1-3) Hydrocodone Bitart/Acetaminophen (Leggett 5/325) 1 tab PO Q4H PRN PRN Reason: Moderate Pain (4-6) Hydrocodone Bitart/Acetaminophen (Leggett 5/325) 2 tab PO Q4H PRN PRN Reason: Severe Pain (7-10) Albuterol Sulfate (Ventolin) 2.5 mg NEB Q2H PRN PRN Reason: Wheezing Albuterol/Ipratropium (Duoneb) 3 ml NEB [id number] [facility] Last Admin: 12/26/17 18:16 Dose: 3 ml Dextrose/Water (Dextrose 50%) 25 gm SLOW IVP PRN PRN PRN Reason: Hypoglycemia Epoetin Eddy (Procrit) 7,500 units SC Q7D [facility] Last Admin: 12/22/17 20:44 Dose: 7,500 units Famotidine (Pepcid) 20 mg PO QPM [facility] Last Admin: 12/26/17 21:06 Dose: 20 mg Ferrous Sulfate (Feosol) 325 mg PO BID-WM [facility] Last Admin: 12/26/17 16:16 Dose: 325 mg Gabapentin (Neurontin) 600 mg PO TID [facility] Last Admin: 12/26/17 21:06 Dose: 600 mg Glucagon (Glucagon) 1 mg IM PRN PRN PRN Reason: Hypoglycemia Guaifenesin/Dextromethorphan (Robitussin Dm) 15 ml PO Q4H PRN PRN Reason: Cough Last Admin: 12/24/17 21:18 Dose: 15 ml Heparin Sodium (Porcine) (Heparin) 5,000 units SC TID [facility] Last Admin: 12/26/17 21:07 Dose: 5,000 units Hydralazine HCl (Apresoline) 100 mg PO TID [facility] Last Admin: 12/26/17 21:51 Dose: 100 mg Hydralazine HCl (Apresoline) 10 mg SLOW IVP Q4H PRN PRN Reason: SBP Greater Than 180 Last Admin: 12/24/17 00:20 Dose: 10 mg Ceftriaxone Sodium 2 gm/ (Sodium Chloride) 100 mls @ 200 mls/hr IVPB Q24HR [facility] Last Admin: 12/26/17 16:15 Dose: 100 mls Dextrose/Water (D5w) 1,000 mls @ 0 mls/hr IV .Q0M PRN PRN Reason: Hypoglycemia Levofloxacin 500 mg/ Device 100 mls @ 100 mls/hr IVPB Q2DAYS@1999 [facility] Last Admin: 12/26/17 21:02 Dose: 100 mls Insulin Glargine 10 units/ (Miscellaneous Medication) 0.1 mls @ 0 mls/hr SC QAM [facility] Last Admin: 12/26/17 08:38 Dose: 0.1 mls Insulin Human Lispro (Humalog) 0 units SC .MODERATE SLIDING SC PRN PRN Reason: Moderate Correctional Scale Last Admin: 12/26/17 16:44 Dose: 4 unit Insulin Human Lispro (Humalog) 0 units SC .BEDTIME SLIDING SC PRN PRN Reason: Bedtime Correctional Scale Last Admin: 12/25/17 20:11 Dose: 3 unit Labetalol HCl (Normodyne) 100 mg PO BID [facility] Last Admin: 12/26/17 21:05 Dose: 100 mg Methylprednisolone Sodium Succinate (Solu-Medrol) 40 mg IVP BID [facility] Last Admin: 12/26/17 21:05 Dose: 40 mg Nifedipine (Procardia Xl) 30 mg PO DAILY [facility] Last Admin: 12/26/17 10:46 Dose: Not Given Ondansetron HCl (Zofran Odt) 4 mg PO Q6H PRN PRN Reason: Nausea/Vomiting Ondansetron HCl (Zofran) 4 mg IVP Q6H PRN PRN Reason: Nausea/Vomiting Sodium Chloride (Flush - Normal Saline) 10 ml IVF Q12HR [facility] Last Admin: 12/26/17 21:06 Dose: 10 ml Sodium Chloride (Flush - Normal Saline) 10 ml IVF PRN PRN PRN Reason: Saline Flush
[2017-12-27] MEDS: hydrALAZINE 20 MG/ML VIAL SLOW IVP PRN (00:10)
[2017-12-27] MEDS: HumaLOG 300 UNITS/3 ML VIAL SC PRN ×4 (00:11→21:20)
[2017-12-27] MEDS ORDERED: cloNIDine 0.1 MG TAB PO PRN (01:41)
[2017-12-27] MEDS ORDERED: Nitroglycerin 2% Ointment 1 INCH/1 GM Packet TOP PRN (01:41)
[2017-12-27 06:03] LABS: #Lymphocytes 0.6 thou/uL (1.20-3.40); #Monocytes 0.2 thou/uL (0.11-0.59); #Neutrophils 9.1 thou/uL (1.40-6.50); Band 2 % (5-11); Elliptocytes SLIGHT = 2-5 cells (100X) (0-1/hpf); Hemoglobin 8.2 g/dL (14.0-18.0); Hypochromia SLIGHT = 6-15 cells (100X) (0-5/hpf); Lymphocytes 9 % (21-51); MDiff Complete? YES; Mean Corpuscular HGB CONC 30.7 g/dL (32.0-36.0); Mean Corpuscular Hemoglobin 22.3 pg (27.0-31.0); Mean Corpuscular Volume 72.7 fL (78.0-98.0); Mean Platelet Volume 10.8 fL (7.4-10.4); Microcytosis SLIGHT = 6-15 cells (100X) (0-5/hpf); Monocytes 4 % (0-10); Neutrophil 85 % (42-75); PLT Morphology Comment Appears Adequate; Platelet Count 173 thou/uL (130-400); RBC Distribution Width 16.2 % (11.5-14.5); Red Blood Cell (RBC) Count 3.68 mill/uL (4.70-6.10)
[2017-12-27 06:04] LABS: Anion Gap 22 mmol/L (10-20); Calc. Creatinine Clearance 13 mL/min (70-130); Calcium 8.7 mg/dL (7.8-10.44); Carbon Dioxide 20 mmol/L (22-29); Chloride 98 mmol/L (98-107); Estimated GFR-MDRD 8; Glucose 249 mg/dL (70-105); Iron 23 ug/dL (65-175); Iron Binding Capacity, Total 156 mcg/dL (261-462); Potassium 5.3 mmol/L (3.5-5.1); Sodium 135 mmol/L (136-145)
[2017-12-27 06:17] LABS: BUN (Urea Nitrogen) 156 mg/dL (8.4-25.7)
[2017-12-27] MEDS ORDERED: Heparin 10,000 UNITS/ 10 ML VIAL ONE ×2 (07:58→09:00)
[2017-12-27] MEDS: Insulin Glargine 10 UNITS in Pre-Filled Syringe 1 EACH SC SCH (09:54)
--- NOTE | 2017-12-27 10:23 | PRG ---
DATE OF SERVICE: 12/27/2017 SUBJECTIVE: Mr. Daniel is a 57-year-old black male who was admitted for acute kidney injury over chr onic renal failure. My feeling is that I think he has a progressive renal dysfunction from underlyin g diabetic nephropathy. We have initiated hemodialysis for volume overload. This morning, he is fee ling a little better. He denies any chest pain. PHYSICAL EXAMINATION: VITAL SIGNS: Blood pressure is 180/92, heart rate 76, respiratory rate 21, temperature 97.8, pulse o x 97%. GENERAL: Noted to be awake, alert, comfortable, not in distress. SKIN: Adequate turgor. HEENT: He has slightly pale conjunctivae, anicteric sclerae. NECK: No neck mass, no carotid bruits, no JVD. CHEST: No deformities. LUNGS: Clear breath sounds. No wheezing or crackles. HEART: Normal sinus rhythm. No murmur, no gallops or rubs. ABDOMEN: Globular, soft, nontender, no masses. EXTREMITIES: Positive for edema. MEDICATIONS: 12/27/2017 - Reviewed. LABORATORY DATA: 12/27/2017 - White count 10, hemoglobin 8.2. Sodium 135, potassium 5.3, chloride 9 8, carbon dioxide 20, BUN 156, creatinine 8.66. Iron 23, calcium 8.7. ASSESSMENT AND PLAN: 1. Chronic renal failure - the patient initiated on dialysis due to volume overload and due to the p rogressive azotemia. I have scheduled him for another 2-hour hemodialysis today. We will attempt to remove 3 liters of fluid as tolerated by the patient. 2. Anemia, he received 1 unit packed RBC yesterday. Continue weekly Epogen. 3. Congestive heart failure. Maxing out fluid removal with dialysis. Overall I agree with current management. We will recheck base met and CBC in a.m.
--- NOTE | 2017-12-27 12:25 | PRG ---
DATE OF SERVICE: 12/27/2017 SERVICE: Pulmonary Medicine. INTERVAL HISTORY: The patient is doing outstanding from a respiratory standpoint. He has made significant progress over the past several days. He did not require any BiPAP last night. He denies any current fevers or chills. He is coughing up a little bit of white phlegm. There is nothing with color to it. Otherwise, he is finally able to get a little bit of rest. OBJECTIVE: VITAL SIGNS: Afebrile, pulse 81, blood pressure 180/89, respirations 24, saturation 91% on 2-1/2 liters nasal cannula. GENERAL: The patient is awake, alert, no apparent distress. LUNGS: Decent air entry. There is a prolonged expiratory phase with extensive crackles, and mild wheezing present. No rhonchi are appreciated. HEART: Normal rate, regular. ABDOMEN: Soft, nontender, nondistended. Bowel sounds are positive. MUSCULOSKELETAL: No cyanosis or clubbing. There is 1-2+ pitting in the bilateral lower extremities. NEUROLOGIC: Grossly nonfocal. LABORATORY DATA: WBC 10.0, hemoglobin 8.2 and stable, platelets 173,000 and down trending. Creatinine 8.66, BUN 156. Sodium 135, potassium 5.3, anion gap 22, bicarb 20. Iron 23, TIBC 156, ferritin 709. ZAC screen is negative. Urinalysis is positive for glycosuria and extensive proteinuria. Respiratory culture, blood cultures x2 remain unremarkable. IMAGING: Echocardiogram demonstrates normal ejection fraction with mild concentric left ventricular hypertrophy. Ultrasound of kidneys demonstrates no evidence of hydronephrosis. ASSESSMENT: 1. Acute hypoxic respiratory failure. 2. Chronic kidney disease. 3. Hypertension. 4. Nephrotic range proteinuria. PLAN: We will continue to dialyze the patient until he returns to euvolemia. Mucinex will be provided to see if we can help liberate some of the sputum that stuck down in his chest. From my perspective, he is stable for transition to the medical unit. He is certainly do not have any significant heart disease that we are aware of that would require telemetry at this time. HUAGN
[2017-12-27] MEDS ORDERED: CEFAZOLIN/Water 2 GM/20 ML SYRINGE SLOW IVP SCH (13:15)
[2017-12-27] MEDS: Ferrous Sulfate 325 MG TAB PO SCH ×2 (14:07→14:38)
[2017-12-27] MEDS: Gabapentin 300 MG CAP PO SCH ×3 (14:08→21:21)
[2017-12-27] MEDS: Heparin 5,000 UNITS/ML VIAL SC SCH ×3 (14:09→21:28)
[2017-12-27] MEDS: hydrALAZINE 25 MG TAB PO SCH ×3 (14:10→21:21)
[2017-12-27] MEDS: Labetalol 100 MG TAB PO SCH ×2 (14:13→21:21)
[2017-12-27] MEDS: NIFEdipine XL 30 MG TAB PO SCH (14:14)
[2017-12-27] MEDS: cefTRIAXone\\ROCEPHIN 2 GM in Sodium Chloride 0.9% 100 ML IVPB SCH (14:20)
[2017-12-27 16:16] LABS: Cytoplasmic (C-ANCA) <1:20 titer (Neg:<1:20); Myeloperoxidase AutoAbs <9.0 U/mL (0.0-9.0); Perinuclear (P-ANCA) <1:20 titer (Neg:<1:20); Proteinase-3 AutoAbs Less than 3.5 U/mL (0.0-3.5)
--- NOTE | 2017-12-27 16:19 | PRG ---
DATE OF SERVICE: 12/27/2017. SUBJECTIVE: Mr. Daniel has been dialyzing. OBJECTIVE: GENERAL: He feels much better. LUNGS: Clear. CARDIAC: Regular rate and rhythm. ABDOMEN: Soft. LABORATORY DATA: Ultrasound vein mapping revealed iatrogenic thrombus, right cephalic vein and forea rm veins due to midline and IV access and a dialysis patient, known. He has suboptimal veins in his left arm. Plan is for a left arm fistula or dialysis graft tomorrow. Also, we will plan placement of a cuffed hemodialysis catheter and a central line to preserve his veins for IV access blood drawals. The jael ent could be considered for future peritoneal dialysis.
[2017-12-27] MEDS: Famotidine 20 MG TAB PO SCH (21:22)
--- NOTE | 2017-12-27 22:30 | PDOC.PN ---
- Subjective Encounter Start Date: 12/27/17 Encounter Start Time: 14:45 Patient seen and examined for SHELLY. Undergoing dialysis. No new complaints. No overnight events - Objective Resuscitation Status: Resuscitation Status FULL:Full Resuscitation MAR Reviewed: Yes Vital Signs & Weight: Vital Signs (12 hours) Temp Pulse Resp BP BP Pulse Ox 12/27/17 21:21 85 12/27/17 19:53 98.5 F 85 16 182/86 H 93 L 12/27/17 18:20 83 20 94 L 12/27/17 15:57 98.0 F 89 25 H 177/88 H 90 L 12/27/17 14:13 88 12/27/17 14:12 90 163/79 H 12/27/17 14:10 91 163/79 H 12/27/17 13:54 87 20 95 12/27/17 11:31 97.9 F 71 24 H 188/89 H 91 L Weight Weight 215 lb 9.793 oz I&O: 12/26/17 12/27/17 12/28/17 06:59 06:59 06:59 Intake Total 2549 1034 1491 Output Total 150 1575 1900 Balance 2399 -541 -409 Result Diagrams: 12/28/17 03:57 12/28/17 03:57 Additional Labs: Accuchecks 12/27/17 12/27/17 12/27/17 20:24 16:25 10:51 POC Glucose 264 H 274 H 293 H 12/27/17 12/27/17 05:57 00:05 POC Glucose 260 H 261 H EKG Reviewed by me: Yes (Tele SR) Phys Exam - Physical Examination Constitutional: NAD Respiratory: no wheezing, no rhonchi Cardiovascular: RRR, no rub Gastrointestinal: soft, non-tender, positive bowel sounds Musculoskeletal: edema present Dx/Plan - Plan DVT proph w/SCDs IMPRESSION: 1. Acute hypoxic respiratory failure due to volume overload 2. SHELLY/CKD 3 / Hyperkalemia - started on dialysis 3. Elevated troponins due to demand ischemia 4. HTN/ DM2 / Anemia due to chronic renal disease s/p 1 unit PRBC 5. s/p Code green for Hypotension with Toxic Metabolic Encephalopathy PLAN: Dialysis per Nephro Cont Atbx/Steroids Cont current anti HTN meds Cont other meds as below AM labs Cont to monitor Review of Systems - Review of Systems Cardiovascular: negative: chest pain, palpitations, orthopnea, paroxysmal nocturnal dyspnea, edema, light headedness, other Gastrointestinal: negative: Nausea, Vomiting, Abdominal Pain, Diarrhea, Constipation, Melena, Hematochezia, Other - Medications/Allergies Allergies/Adverse Reactions: Allergies Allergy/AdvReac Type Severity Reaction Status Date / Time lisinopril Allergy Verified 12/22/17 18:04 Medications: Current Medications Acetaminophen (Tylenol) 650 mg PO Q4H PRN PRN Reason: Headache/Fever/Mild Pain (1-3) Last Admin: 12/22/17 20:45 Dose: 650 mg Acetaminophen (Tylenol) 650 mg [place] Q4H PRN PRN Reason: Headache/Fever/Mild Pain (1-3) Hydrocodone Bitart/Acetaminophen ([place] 5/325) 1 tab PO Q4H PRN PRN Reason: Moderate Pain (4-6) Hydrocodone Bitart/Acetaminophen ([place] 5/325) 2 tab PO Q4H PRN PRN Reason: Severe Pain (7-10) Albuterol Sulfate (Ventolin) 2.5 mg NEB Q2H PRN PRN Reason: Wheezing Albuterol/Ipratropium (Duoneb) 3 ml NEB [id number] [facility] Last Admin: 12/27/17 18:20 Dose: 3 ml Cefazolin Sodium (Ancef) 2 gm SLOW IVP ONCALL-OR [facility] Clonidine (Catapres) 0.1 mg PO Q6H PRN PRN Reason: SBP > 180 Last Admin: 12/27/17 02:19 Dose: 0.1 mg Dextrose/Water (Dextrose 50%) 25 gm SLOW IVP PRN PRN PRN Reason: Hypoglycemia Epoetin Eddy (Procrit) 7,500 units SC Q7D [facility] Last Admin: 12/22/17 20:44 Dose: 7,500 units Famotidine (Pepcid) 20 mg PO QPM [facility] Last Admin: 12/27/17 21:22 Dose: 20 mg Ferrous Sulfate (Feosol) 325 mg PO BID-WM [facility] Last Admin: 12/27/17 14:38 Dose: Not Given Gabapentin (Neurontin) 600 mg PO TID [facility] Last Admin: 12/27/17 21:21 Dose: 600 mg Glucagon (Glucagon) 1 mg IM PRN PRN PRN Reason: Hypoglycemia Guaifenesin/Dextromethorphan (Robitussin Dm) 15 ml PO Q4H PRN PRN Reason: Cough Last Admin: 12/24/17 21:18 Dose: 15 ml Heparin Sodium (Porcine) (Heparin) 5,000 units SC TID [facility] Last Admin: 12/27/17 21:28 Dose: 5,000 units Hydralazine HCl (Apresoline) 100 mg PO TID [facility] Last Admin: 12/27/17 21:21 Dose: 100 mg Hydralazine HCl (Apresoline) 10 mg SLOW IVP Q4H PRN PRN Reason: SBP Greater Than 180 Last Admin: 12/27/17 00:10 Dose: 10 mg Ceftriaxone Sodium 2 gm/ (Sodium Chloride) 100 mls @ 200 mls/hr IVPB Q24HR [facility] Last Admin: 12/27/17 14:20 Dose: 100 mls Dextrose/Water (D5w) 1,000 mls @ 0 mls/hr IV .Q0M PRN PRN Reason: Hypoglycemia Levofloxacin 500 mg/ Device 100 mls @ 100 mls/hr IVPB Q2DAYS@2000 [facility] Last Admin: 12/26/17 21:02 Dose: 100 mls Insulin Glargine 10 units/ (Miscellaneous Medication) 0.1 mls @ 0 mls/hr SC QAM [facility] Last Admin: 12/27/17 09:54 Dose: 0.1 mls Insulin Human Lispro (Humalog) 0 units SC .MODERATE SLIDING SC PRN PRN Reason: Moderate Correctional Scale Last Admin: 12/27/17 16:56 Dose: 6 unit Insulin Human Lispro (Humalog) 0 units SC .BEDTIME SLIDING SC PRN PRN Reason: Bedtime Correctional Scale Last Admin: 12/27/17 21:20 Dose: 3 unit Labetalol HCl (Normodyne) 100 mg PO BID [facility] Last Admin: 12/27/17 21:21 Dose: 100 mg Methylprednisolone Sodium Succinate (Solu-Medrol) 40 mg IVP BID [facility] Last Admin: 12/27/17 21:22 Dose: 40 mg Nifedipine (Procardia Xl) 30 mg PO DAILY [facility] Last Admin: 12/27/17 14:14 Dose: 30 mg Nitroglycerin (Nitro-Bid 2% Ointment) 0.5 inch TOP DAILYPRN PRN PRN Reason: FOR SBP > 180 Ondansetron HCl (Zofran Odt) 4 mg PO Q6H PRN PRN Reason: Nausea/Vomiting Ondansetron HCl (Zofran) 4 mg IVP Q6H PRN PRN Reason: Nausea/Vomiting Sodium Chloride (Flush - Normal Saline) 10 ml IVF Q12HR OBED Last Admin: 12/27/17 14:14 Dose: 10 ml Sodium Chloride (Flush - Normal Saline) 10 ml IVF PRN PRN PRN Reason: Saline Flush Last Admin: 12/27/17 14:14 Dose: 10 ml
[2017-12-28 04:31] LABS: Anion Gap 21 mmol/L (10-20); Calc. Creatinine Clearance 14 mL/min (70-130); Calcium 9.1 mg/dL (7.8-10.44); Carbon Dioxide 23 mmol/L (22-29); Chloride 97 mmol/L (98-107); Estimated GFR-MDRD 9; Glucose 263 mg/dL (70-105); Potassium 5.1 mmol/L (3.5-5.1); Sodium 136 mmol/L (136-145)
[2017-12-28 04:42] LABS: BUN (Urea Nitrogen) 143 mg/dL (8.4-25.7)
[2017-12-28 04:48] LABS: Band 8 % (5-11); Hemoglobin 8.5 g/dL (14.0-18.0); Lymphocytes 3 % (21-51); MDiff Complete? YES; Mean Corpuscular HGB CONC 31.1 g/dL (32.0-36.0); Mean Corpuscular Hemoglobin 22.4 pg (27.0-31.0); Mean Corpuscular Volume 71.9 fL (78.0-98.0); Mean Platelet Volume 7.8 fL (7.4-10.4); Metamyelocyte 2 % (0-0); Monocytes 3 % (0-10); Neutrophil 84 % (42-75); PLT Morphology Comment Appears Adequate; Platelet Count 183 thou/uL (130-400); Red Blood Cell (RBC) Count 3.81 mill/uL (4.70-6.10); White Blood Cell (WBC) Count 10.9 thou/uL (4.8-10.8)
[2017-12-28] MEDS: Labetalol 100 MG TAB PO SCH ×2 (05:30→20:32)
[2017-12-28] MEDS ORDERED: Sodium Chloride 0.9% 0 ML ONE (06:29)
[2017-12-28] MEDS ORDERED: Ioversol 68 % 50 ML VIAL ONE (06:29)
[2017-12-28] MEDS ORDERED: Heparin 10,000 UNITS/1 ML VIAL ONE (06:29)
[2017-12-28] MEDS ORDERED: Protamine Sulfate 50 MG/5 ML VIAL ONE (06:29)
[2017-12-28] MEDS ORDERED: Heparin 5,000 UNITS/ML VIAL ONE (06:29)
[2017-12-28] MEDS ORDERED: Lidocaine 2% PF Inj 2 ML VIAL ONE (06:29)
[2017-12-28] MEDS ORDERED: Bupivacaine HCl 0.5%/Epinephrine 1:200,000/PF 30 ml Vial ONE ×2 (06:29→17:04)
[2017-12-28] MEDS ORDERED: CEFAZOLIN/Water 2 GM/20 ML SYRINGE ONE (06:49)
[2017-12-28] MEDS ORDERED: Insulin Regular 300 UNITS/3 ML VIAL ONE (07:08)
[2017-12-28] MEDS ORDERED: Ketamine 50 MG/ML VIAL ONE (07:37)
[2017-12-28] MEDS ORDERED: Sodium Chloride 0.9% 20 ML ONE (08:10)
[2017-12-28] MEDS ORDERED: Promethazine HCl 25 MG/ML VIAL SLOW IVP PRN (10:29)
[2017-12-28] MEDS ORDERED: Ondansetron HCl/PF 4 MG/2 ML Vial IVP PRN (10:29)
[2017-12-28] MEDS ORDERED: Promethazine HCl 25 MG/ML VIAL IM PRN (10:29)
--- NOTE | 2017-12-28 10:56 | OP ---
DATE OF PROCEDURE: 12/28/2017 PREOPERATIVE DIAGNOSES: End-stage renal disease, left hand patient, iatrogenic thrombosis upper arm, right cephalic vein and antecubital vein secondary to a midline IV and IV access. End-stage renal d isease patient known. 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 FINDINGS: Inadequate veins during the operation. POSTOPERATIVE DIAGNOSES: End-stage renal disease, left hand patient, iatrogenic thrombosis upper arm, right cephalic vein and antecubital vein secondary to a midline IV and IV access. End-stage renal d isease patient known. 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 PROCEDURE: Placement of right IJ cuffed tunnel hemodialysis catheter, precurved angiodynamics and le ft IJ central line, ultrasound fluoroscopy used. Exploration of the left forearm vein finding an carmine dequate and stenotic left upper arm cephalic vein above the AC requiring ligation. Placing a left u pper arm prosthetic PTFE straight dialysis graft tapered 4 mm, T07 mm brachial artery of excellent qu ality and size without arteriosclerotic disease, outflow axillary vein of excellent size. Note super ficial basilic vein smaller. SURGEON: Dr. Srinivas Cottrell ANESTHESIA: Intravenous sedation and left arm regional, local 0.5% Marcaine with epinephrine, 30 mL with 2% Xylocaine, 10 mL. PROCEDURE: The patient was taken to the operating room where under regional anesthesia left arm and intravenous sedation, neck and chest and left upper extremity, axilla prepared with ChloraPrep, drape d in routine fashion. Local anesthetic infiltrated in the skin and subcutaneous tissue about the ope rative site about the head and neck. Using ultrasound guidance, the right and left internal jugular veins were cannulated with trocar catheter and J-wires threaded. Trocar catheter removed. Skin inci sed and enlarged sharply. Stab incision made over the right chest. Using the tunneling device, the precurved angiodynamics hemodialysis catheter tunneled between the two incisions, placing the fiber c uff beneath the skin exit site and Biopatch applied as catheter secured with 2 sutures of 3-0 nylon. Smaller medium sized dilators placed over the J-wire internal jugular vein removed. Dilator and pul l-away sheath placed over the J-wire in the superior vena cava. Dilator and J-wire removed. Cathete r placed with pull-away sheath. Pull-away sheath removed. Platysma approximated with 4-0 Monocryl, skin with subdermal 4-0 Monocryl. DermaGlue and sterile dressings applied as each port aspirated of blood and flushed with saline solution, heparinized saline solution 1000 units heparin per mL indicat ed volume of the port. Seldinger technique used to place a left internal jugular vein triple lumen catheter, removing the J- wire, securing the catheter 3-0 nylon suture. Biopatch sterile dressing applied. Each port aspirate d blood and flushed with saline solution. Fluoroscopic images revealed good line placement. Attention then turned to the left arm where an incision was made in the proximal volar forearm just b elow the antecubital fossa longitudinally, carried down the skin and subcutaneous tissue. Antecubita l vein dissected free. Antecubital vein on the forearm side was fibrotic although the cephalic vein looked like it potentially could be used. The patient was given 6000 units heparin intravenously and a perforating branch antecubital vein dissected free and was of adequate caliber, although not large and branches divided between clips and 4-0 silk ties and spatulated over branch points and it was in terrogated with coronary dilators, passing coronary dilators from a 2 mm to a 3.5 mm coronary dilator with some resistance in the cephalic vein above the antecubital fossa. This was due to prior IV acc ess. I then flushed it with heparin saline solution and there was extravasation indicating this vein was not useful. Thus, it was ligated. Basilic vein was not found. Thus, an incision was approxima herbert closed by approximately subcutaneous tissue with 3-0 Monocryl, skin with subdermal 4-0 Monocryl. Attention was then turned towards placement of left upper arm dialysis prosthetic graft. Incision ma de longitudinally in the distal upper arm above the antecubital fossa and carried down through skin a nd subcutaneous and the brachial artery was of good excellent size without significant arteriosclerot ic disease and controlled with Silastic loop. Incision was made in the left axilla supplementing loc al anesthetic to enable this. Incision carried down the skin and subcutaneous tissue to deep fascia. A more superficial smaller basilic vein identified and deeper was an axillary vein dissected free o f much greater size. This was of excellent caliber and size. It was controlled proximally and dista lly with Silastic vessel loops. A tunneling device Latesha-Antoine tunneler used to tunnel a tapered PTFE graft 4T07, placing the 4 mm end near the brachial artery above the antecubital fossa. The patient had very ____ been given heparin. Brachial artery was clamped proximally and distally and longitudin al arteriotomy made sharply and elongated with the Young scissors and graft tailored for length for a Cobra head anastomosis and continuous suture of 6-0 Prolene used for the graft artery anastomosis en d-to-side respectfully. Vascular clamps were released, there was good flow in the graft. Vascular c lamp placed across the graft and Surgicel applied and dry dressings applied and turned to the axilla. The axillary vein was then controlled proximally and distally with Silastic vessel loops. Longitudin al venotomy made sharply and elongated with Young scissors. Stay sutures 6-[address]. Graft tailored to length on the 7 mm end for a Cobra head anastomosis and end graft to side vein skylar stomosis created with continuous suture of 6-0 Prolene. Arterial inflow was released and there was g ood flow of venous outflow released and good hemostasis noted. Surgicel applied. The patient was gi chrissy 50 mg of protamine by Anesthesia. All skin incisions approximated by approximating subcutaneous tissues with 3-0 Monocryl, skin with subdermal 4-0 Monocryl and DermaGlue applied.
[2017-12-28] MEDS ORDERED: traMADol HCl 50 MG TAB PO PRN (11:11)
[2017-12-28] MEDS ORDERED: Acetaminophen 500 MG TAB PO PRN (11:11)
--- NOTE | 2017-12-28 11:57 | RAD ---
SEMIUPRIGHT PORTABLE CHEST ONE VIEW: HISTORY: A 57-year-old male with a history of post line placement in the OR. COMPARISON: 12/23/2017 FINDINGS: There is a right dual-lumen venous access catheter in place. There is cardiomegaly with bilateral va scular congestion and some scattered alveolar edematous changes, less marked than on the 12/23/2017 s tudy. A left jugular venous catheter is in place. No pneumothorax or pleural effusion. IMPRESSION: 1. Right dual-lumen venous access catheter and left jugular venous catheter is in place. 2. Cardiomegaly with bilateral vascular congestion and minimal bilateral edema, actually less marked than on prior study. 3. No pneumothorax or other acute process. POS: [facility]
--- NOTE | 2017-12-28 13:39 | PRG ---
DATE OF SERVICE: 12/28/2017 SERVICE: Pulmonary Medicine INTERVAL HISTORY: The patient is doing great from a respiratory standpoint. He underwent dialysis yesterday. Since then, he had no events overnight. He was transitioned out of the ICU to the Medical Unit. His cough is improving a little bit. He is able to generate some of that sputum. His lower extremity edema continues to improve. PHYSICAL EXAMINATION: VITAL SIGNS: Afebrile, pulse 69, blood pressure 148/75, respirations 18, saturation 93% on 4 liters nasal cannula. GENERAL: The patient is awake, alert, no apparent distress. LUNGS: Decent air entry. Minimal dependent crackles are present. There is no prolonged expiratory phase or wheezing present. HEART: Normal rate, regular. ABDOMEN: Soft, nontender, nondistended. Bowel sounds are positive. MUSCULOSKELETAL: No cyanosis or clubbing. There is 2+ pitting in the bilateral lower extremities. NEUROLOGIC: Grossly nonfocal. LABORATORY DATA: WBC 10.9, hemoglobin 8.5, platelets 183,000. Neutrophil count is 84% with 8% bands. Creatinine 7.85, down trending, BUN 143, down trending, anion gap 21, bicarbonate 23. Basic metabolic profile is otherwise unremarkable. ANCAs and ZAC screen are negative. Urine has significant proteinuria. Respiratory culture and blood cultures x2 are unremarkable. IMAGING: Chest x-ray demonstrates interval placement of a dual lumen vascular catheter on the right. There is a left IJ in good position. Pulmonary edema pattern persists. There is cardiomegaly noted. ASSESSMENT: 1. Acute hypoxic respiratory failure secondary to anasarca from kidney disease. 2. Chronic kidney disease. 3. Hypertension. 4. Nephrotic range proteinuria. DISCUSSION AND PLAN: Now the patient is on dialysis, his breathing has actually improved quite a bit. He is off oxygen. As such, he has no further requirements for inpatient Pulmonary or Critical Care opinion. If he develops any increasing respiratory difficulties, please call the Pulmonary Service back. HUANG
[2017-12-28] MEDS: Ferrous Sulfate 325 MG TAB PO SCH ×2 (15:05→17:16)
[2017-12-28] MEDS: Insulin Glargine 10 UNITS in Pre-Filled Syringe 1 EACH SC SCH (15:06)
[2017-12-28] MEDS: Gabapentin 300 MG CAP PO SCH ×3 (15:06→20:31)
[2017-12-28] MEDS: Heparin 5,000 UNITS/ML VIAL SC SCH ×3 (15:06→20:32)
[2017-12-28] MEDS: hydrALAZINE 25 MG TAB PO SCH ×3 (15:06→20:31)
[2017-12-28] MEDS: NIFEdipine XL 30 MG TAB PO SCH (15:07)
[2017-12-28] MEDS: cefTRIAXone\\ROCEPHIN 2 GM in Sodium Chloride 0.9% 100 ML IVPB SCH (15:32)
[2017-12-28] MEDS: HumaLOG 300 UNITS/3 ML VIAL SC PRN (17:17)
[2017-12-28] MEDS ORDERED: Heparin 10,000 UNITS/ 10 ML VIAL ONE (17:30)
[2017-12-28] MEDS ORDERED: PROPOFOL 200 MG/20 ML VIAL ONE (17:30)
[2017-12-28] MEDS: Famotidine 20 MG TAB PO SCH (20:31)
--- NOTE | 2017-12-28 23:37 | PDOC.PN ---
- Subjective Encounter Start Date: 12/28/17 Encounter Start Time: 13:00 Patient seen and examined for SHELLY. No new complaints. No overnight events - Objective Resuscitation Status: Resuscitation Status FULL:Full Resuscitation MAR Reviewed: Yes Vital Signs & Weight: Vital Signs (12 hours) Temp Pulse Resp BP BP BP Pulse Ox 12/28/17 20:32 87 174/80 H 12/28/17 20:31 87 174/80 H 12/28/17 20:00 98.5 F 88 20 174/80 H 92 L 12/28/17 19:03 78 16 96 12/28/17 17:18 174/86 H 12/28/17 15:30 98 12/28/17 15:27 87 184/76 H 12/28/17 15:20 98.3 F 87 18 184/76 H 98 12/28/17 15:07 76 12/28/17 15:06 76 Weight Weight 207 lb 14.334 oz I&O: 12/27/17 12/28/17 12/29/17 06:59 06:59 06:59 Intake Total 1034 1491 460 Output Total 1575 2050 3000 Balance -541 -559 -2540 Result Diagrams: 12/28/17 03:57 12/28/17 03:57 Additional Labs: Accuchecks 12/28/17 12/28/17 16:28 10:34 POC Glucose 175 H 261 H EKG Reviewed by me: Yes (Tele SR) Phys Exam - Physical Examination Constitutional: NAD Respiratory: no wheezing, no rhonchi Bibasilar rales Cardiovascular: RRR, no rub Gastrointestinal: soft, positive bowel sounds Musculoskeletal: edema present Neurological: moves all 4 limbs Psychiatric: A&O x 3 Dx/Plan - Plan DVT proph w/heparin, DVT proph w/SCDs IMPRESSION: 1. Acute hypoxic respiratory failure due to volume overload 2. SHELLY/CKD 3 / Hyperkalemia - started on dialysis 3. Elevated troponins due to demand ischemia 4. HTN/ DM2 / Anemia due to chronic renal disease s/p 1 unit PRBC 5. s/p Code green for Hypotension with Toxic Metabolic Encephalopathy PLAN: Cont Dialysis per Nephro Cont Atbx/Steroids Cont current meds as below AM labs Cont Lantus Cont to monitor Review of Systems - Review of Systems Respiratory: negative: Cough, Dry, Shortness of Breath, Hemoptysis, SOB with Excertion, Pleuritic Pain, Sputum, Wheezing Cardiovascular: negative: chest pain, palpitations, orthopnea, paroxysmal nocturnal dyspnea, edema, light headedness, other - Medications/Allergies Allergies/Adverse Reactions: Allergies Allergy/AdvReac Type Severity Reaction Status Date / Time lisinopril Allergy Verified 12/22/17 18:04 Medications: Current Medications Acetaminophen (Tylenol) 650 mg PO Q4H PRN PRN Reason: Headache/Fever/Mild Pain (1-3) Last Admin: 12/22/17 20:45 Dose: 650 mg Acetaminophen (Tylenol) 650 mg [place] Q4H PRN PRN Reason: Headache/Fever/Mild Pain (1-3) Acetaminophen (Tylenol) 1,000 mg PO Q6H PRN PRN Reason: Moderate to Severe Pain (6-10) Hydrocodone Bitart/Acetaminophen ([place] 5/325) 1 tab PO Q4H PRN PRN Reason: Moderate Pain (4-6) Hydrocodone Bitart/Acetaminophen ([place] 5/325) 2 tab PO Q4H PRN PRN Reason: Severe Pain (7-10) Albuterol Sulfate (Ventolin) 2.5 mg NEB Q2H PRN PRN Reason: Wheezing Albuterol/Ipratropium (Duoneb) 3 ml NEB [id number] [facility] Last Admin: 12/28/17 19:03 Dose: 3 ml Cefazolin Sodium (Ancef) 2 gm SLOW IVP ONCALL-OR [facility] Clonidine (Catapres) 0.1 mg PO Q6H PRN PRN Reason: SBP > 180 Last Admin: 12/27/17 02:19 Dose: 0.1 mg Dextrose/Water (Dextrose 50%) 25 gm SLOW IVP PRN PRN PRN Reason: Hypoglycemia Epoetin Eddy (Procrit) 7,500 units SC Q7D [facility] Last Admin: 12/22/17 20:44 Dose: 7,500 units Famotidine (Pepcid) 20 mg PO QPM [facility] Last Admin: 12/28/17 20:31 Dose: 20 mg Ferrous Sulfate (Feosol) 325 mg PO BID-WM [facility] Last Admin: 12/28/17 17:16 Dose: 325 mg Gabapentin (Neurontin) 600 mg PO TID [facility] Last Admin: 12/28/17 20:31 Dose: 600 mg Glucagon (Glucagon) 1 mg IM PRN PRN PRN Reason: Hypoglycemia Guaifenesin/Dextromethorphan (Robitussin Dm) 15 ml PO Q4H PRN PRN Reason: Cough Last Admin: 12/24/17 21:18 Dose: 15 ml Heparin Sodium (Porcine) (Heparin) 5,000 units SC TID [facility] Last Admin: 12/28/17 20:32 Dose: 5,000 units Hydralazine HCl (Apresoline) 100 mg PO TID [facility] Last Admin: 12/28/17 20:31 Dose: 100 mg Hydralazine HCl (Apresoline) 10 mg SLOW IVP Q4H PRN PRN Reason: SBP Greater Than 180 Last Admin: 12/27/17 00:10 Dose: 10 mg Ceftriaxone Sodium 2 gm/ (Sodium Chloride) 100 mls @ 200 mls/hr IVPB Q24HR [facility] Last Admin: 12/28/17 15:32 Dose: 100 mls Dextrose/Water (D5w) 1,000 mls @ 0 mls/hr IV .Q0M PRN PRN Reason: Hypoglycemia Levofloxacin 500 mg/ Device 100 mls @ 100 mls/hr IVPB Q2DAYS@2000 [facility] Last Admin: 12/28/17 20:31 Dose: 100 mls Insulin Glargine 10 units/ (Miscellaneous Medication) 0.1 mls @ 0 mls/hr SC QAM [facility] Last Admin: 12/28/17 15:06 Dose: Not Given Insulin Human Lispro (Humalog) 0 units SC .MODERATE SLIDING SC PRN PRN Reason: Moderate Correctional Scale Last Admin: 12/28/17 17:17 Dose: 2 unit Insulin Human Lispro (Humalog) 0 units SC .BEDTIME SLIDING SC PRN PRN Reason: Bedtime Correctional Scale Last Admin: 12/27/17 21:20 Dose: 3 unit Labetalol HCl (Normodyne) 100 mg PO BID [facility] Last Admin: 12/28/17 20:32 Dose: 100 mg Nifedipine (Procardia Xl) 30 mg PO DAILY [facility] Last Admin: 12/28/17 15:07 Dose: Not Given Nitroglycerin (Nitro-Bid 2% Ointment) 0.5 inch TOP DAILYPRN PRN PRN Reason: FOR SBP > 180 Ondansetron HCl (Zofran Odt) 4 mg PO Q6H PRN PRN Reason: Nausea/Vomiting Ondansetron HCl (Zofran) 4 mg IVP Q6H PRN PRN Reason: Nausea/Vomiting Sodium Chloride (Flush - Normal Saline) 10 ml IVF Q12HR [facility] Last Admin: 12/28/17 20:32 Dose: 10 ml Sodium Chloride (Flush - Normal Saline) 10 ml IVF PRN PRN PRN Reason: Saline Flush Last Admin: 12/27/17 14:14 Dose: 10 ml Tramadol HCl (Ultram) 50 mg PO Q6H PRN PRN Reason: Pain 1-5
[2017-12-29] MEDS: HYDROcodone/Acetaminophen 5/325 mg Tablet PO PRN ×3 (02:09→18:02)
[2017-12-29] MEDS: HumaLOG 300 UNITS/3 ML VIAL SC PRN (05:38)
[2017-12-29] MEDS ORDERED: Heparin 10,000 UNITS/ 10 ML VIAL ONE (08:20)
--- NOTE | 2017-12-29 10:16 | PRG ---
DATE OF SERVICE: 12/29/2017 SUBJECTIVE: Mr. Daniel is a 57-year-old black male admitted for shortness of breath. He was found to be in congestive heart failure. He is undergoing dialysis due to progressive ischemia and due to vo lume overload. I am currently at the dialysis supervising his treatment. We are attempting a 3 lite r fluid removal. His breathing is much better with fluid removal. PHYSICAL EXAMINATION: VITAL SIGNS: Blood pressure 151/66, heart rate 83, respiratory rate 20, temperature 98.9, pulse ox 9 8%. GENERAL: Awake, alert, supine, comfortable, not in distress. SKIN: Adequate turgor. HEENT: Slightly pale conjunctivae, anicteric sclerae. NECK: No neck mass, no carotid bruits, no JVD. CHEST: No deformities. LUNGS: Decreased breath sounds. HEART: Normal sinus rhythm. No murmur, no gallops or rubs. ABDOMEN: Globular, soft, nontender, no masses. EXTREMITIES: No edema, no deformities. MEDICATIONS: 12/29/2017 - Reviewed. LABORATORY: 12/28/2017 - White count 10.9, hemoglobin 8.5. Sodium 136, potassium 5.1, chloride 97, carbon dioxide 23, BUN 143, creatinine 7.85, calcium 9.1. ASSESSMENT AND PLAN: 1. Congestive heart failure - clinically improving with fluid removal with dialysis. Continue dialy sis regimen. 2. Chronic renal failure/end-stage renal disease. Hemodialysis has been initiated. My plan is to d o a 4-hour hemodialysis. Fluid removal about 3 liters will be attempted. I will now place this jael ent on 3 times a week hemodialysis. Continue supportive care.
[2017-12-29 10:22] LABS: HBSAB Concentration 1.45 mIU/mL; HBSAg Index 0.18 S/CO (0-0.99); Hep B Core Total Ab Non-Reactive (NonReactive); Hep B Core Total Index 0.08 S/CO (0-0.79); Hep B Surf AB Non-Reactive (NonReactive); Hep B Surf Ag Non-Reactive S/CO (NonReactive); Hep C IgG Ab Non-Reactive (NonReactive); Hep C Index 0.12 S/CO (0-0.79)
[2017-12-29] MEDS: Heparin 5,000 UNITS/ML VIAL SC SCH ×3 (12:55→20:37)
[2017-12-29] MEDS: Gabapentin 300 MG CAP PO SCH ×3 (14:34→20:38)
[2017-12-29] MEDS: hydrALAZINE 25 MG TAB PO SCH ×3 (14:34→20:37)
[2017-12-29] MEDS: NIFEdipine XL 30 MG TAB PO SCH (14:35)
[2017-12-29] MEDS: Ferrous Sulfate 325 MG TAB PO SCH ×2 (14:35→18:02)
[2017-12-29] MEDS: Labetalol 100 MG TAB PO SCH ×2 (14:36→20:37)
[2017-12-29] MEDS: cefTRIAXone\\ROCEPHIN 2 GM in Sodium Chloride 0.9% 100 ML IVPB SCH (14:38)
[2017-12-29] MEDS: Insulin Glargine 10 UNITS in Pre-Filled Syringe 1 EACH SC SCH (14:43)
--- NOTE | 2017-12-29 15:54 | PDOC.PN ---
- Subjective Encounter Start Date: 12/29/17 Encounter Start Time: 14:00 Patient seen and examined for Resp failure. Underwent dialysis today. No new complaints. No overnight events - Objective Resuscitation Status: Resuscitation Status FULL:Full Resuscitation MAR Reviewed: Yes Vital Signs & Weight: Vital Signs (12 hours) Temp Pulse Resp BP Pulse Ox 12/29/17 14:52 85 12/29/17 14:34 85 12/29/17 12:50 98.3 F 85 18 172/70 H 98 12/29/17 07:02 81 12/29/17 04:00 98.9 F 83 20 151/66 H 98 Weight Weight 207 lb 14.334 oz I&O: 12/28/17 12/29/17 12/30/17 06:59 06:59 06:59 Intake Total 1491 1040 Output Total 0 3000 Balance -559 -0349 Result Diagrams: 12/28/17 03:57 12/28/17 03:57 Additional Labs: Accuchecks 12/29/17 12/29/17 12/28/17 13:00 04:28 20:19 POC Glucose 124 H 267 H 199 H 12/28/17 16:28 POC Glucose 175 H Phys Exam - Physical Examination Constitutional: NAD Respiratory: no wheezing, no rhonchi Cardiovascular: RRR, no rub Gastrointestinal: soft, positive bowel sounds Musculoskeletal: edema present Neurological: moves all 4 limbs Dx/Plan - Plan DVT proph w/SCDs IMPRESSION: 1. Acute hypoxic respiratory failure due to volume overload 2. SHELLY/CKD 3 / Hyperkalemia - started on dialysis 3. Elevated troponins due to demand ischemia 4. HTN/ DM2 / Anemia due to chronic renal disease s/p 1 unit PRBC 5. s/p Code green for Hypotension with Toxic Metabolic Encephalopathy/ Obesity BMI 33.6 PLAN: Wean O2 Cont Dialysis per Nephro DC Atbx AM labs Cont Lantus with sliding scale Cont current meds as below Outpt dialysis setup Review of Systems - Review of Systems Constitutional: negative: fever, chills, sweats, weakness, malaise, other Respiratory: negative: Cough, Dry, Shortness of Breath, Hemoptysis, SOB with Excertion, Pleuritic Pain, Sputum, Wheezing Gastrointestinal: negative: Nausea, Vomiting, Abdominal Pain, Diarrhea, Constipation, Melena, Hematochezia, Other - Medications/Allergies Allergies/Adverse Reactions: Allergies Allergy/AdvReac Type Severity Reaction Status Date / Time lisinopril Allergy Verified 12/22/17 18:04 Medications: Current Medications Acetaminophen (Tylenol) 650 mg PO Q4H PRN PRN Reason: Headache/Fever/Mild Pain (1-3) Last Admin: 12/22/17 20:45 Dose: 650 mg Acetaminophen (Tylenol) 650 mg [place] Q4H PRN PRN Reason: Headache/Fever/Mild Pain (1-3) Acetaminophen (Tylenol) 1,000 mg PO Q6H PRN PRN Reason: Moderate to Severe Pain (6-10) Hydrocodone Bitart/Acetaminophen ([place] 5/325) 1 tab PO Q4H PRN PRN Reason: Moderate Pain (4-6) Last Admin: 12/29/17 14:35 Dose: 1 tab Hydrocodone Bitart/Acetaminophen ([place] 5/325) 2 tab PO Q4H PRN PRN Reason: Severe Pain (7-10) Albuterol Sulfate (Ventolin) 2.5 mg NEB Q2H PRN PRN Reason: Wheezing Albuterol/Ipratropium (Duoneb) 3 ml NEB [id number] [facility] Last Admin: 12/29/17 12:02 Dose: Not Given Cefazolin Sodium (Ancef) 2 gm SLOW IVP ONCALL-OR [facility] Clonidine (Catapres) 0.1 mg PO Q6H PRN PRN Reason: SBP > 180 Last Admin: 12/27/17 02:19 Dose: 0.1 mg Dextrose/Water (Dextrose 50%) 25 gm SLOW IVP PRN PRN PRN Reason: Hypoglycemia Epoetin Eddy (Procrit) 7,500 units SC Q7D [facility] Last Admin: 12/22/17 20:44 Dose: 7,500 units Famotidine (Pepcid) 20 mg PO QPM [facility] Last Admin: 12/28/17 20:31 Dose: 20 mg Ferrous Sulfate (Feosol) 325 mg PO BID-WM [facility] Last Admin: 12/29/17 14:35 Dose: 325 mg Gabapentin (Neurontin) 600 mg PO TID [facility] Last Admin: 12/29/17 14:52 Dose: Not Given Glucagon (Glucagon) 1 mg IM PRN PRN PRN Reason: Hypoglycemia Guaifenesin/Dextromethorphan (Robitussin Dm) 15 ml PO Q4H PRN PRN Reason: Cough Last Admin: 12/24/17 21:18 Dose: 15 ml Heparin Sodium (Porcine) (Heparin) 5,000 units SC TID [facility] Last Admin: 12/29/17 14:43 Dose: 5,000 units Hydralazine HCl (Apresoline) 100 mg PO TID [facility] Last Admin: 12/29/17 14:52 Dose: Not Given Hydralazine HCl (Apresoline) 10 mg SLOW IVP Q4H PRN PRN Reason: SBP Greater Than 180 Last Admin: 12/27/17 00:10 Dose: 10 mg Ceftriaxone Sodium 2 gm/ (Sodium Chloride) 100 mls @ 200 mls/hr IVPB Q24HR [facility] Last Admin: 12/29/17 14:38 Dose: 100 mls Dextrose/Water (D5w) 1,000 mls @ 0 mls/hr IV .Q0M PRN PRN Reason: Hypoglycemia Levofloxacin 500 mg/ Device 100 mls @ 100 mls/hr IVPB Q2DAYS@2000 [facility] Last Admin: 12/28/17 20:31 Dose: 100 mls Insulin Glargine 10 units/ (Miscellaneous Medication) 0.1 mls @ 0 mls/hr SC QAM [facility] Last Admin: 12/29/17 14:43 Dose: Not Given Insulin Human Lispro (Humalog) 0 units SC .MODERATE SLIDING SC PRN PRN Reason: Moderate Correctional Scale Last Admin: 12/29/17 05:38 Dose: 6 unit Insulin Human Lispro (Humalog) 0 units SC .BEDTIME SLIDING SC PRN PRN Reason: Bedtime Correctional Scale Last Admin: 12/27/17 21:20 Dose: 3 unit Labetalol HCl (Normodyne) 100 mg PO BID [facility] Last Admin: 12/29/17 14:36 Dose: 100 mg Nifedipine (Procardia Xl) 30 mg PO DAILY [facility] Last Admin: 12/29/17 14:35 Dose: 30 mg Nitroglycerin (Nitro-Bid 2% Ointment) 0.5 inch TOP DAILYPRN PRN PRN Reason: FOR SBP > 180 Ondansetron HCl (Zofran Odt) 4 mg PO Q6H PRN PRN Reason: Nausea/Vomiting Ondansetron HCl (Zofran) 4 mg IVP Q6H PRN PRN Reason: Nausea/Vomiting Sodium Chloride (Flush - Normal Saline) 10 ml IVF Q12HR OBED Last Admin: 12/29/17 14:41 Dose: 10 ml Sodium Chloride (Flush - Normal Saline) 10 ml IVF PRN PRN PRN Reason: Saline Flush Last Admin: 12/27/17 14:14 Dose: 10 ml Tramadol HCl (Ultram) 50 mg PO Q6H PRN PRN Reason: Pain 1-5
[2017-12-29] MEDS: Epoetin (ESRD) 20,000 UNITS/ML SC SCH (20:36)
[2017-12-29] MEDS: Famotidine 20 MG TAB PO SCH (20:38)
[2017-12-30] MEDS: Ferrous Sulfate 325 MG TAB PO SCH ×2 (08:30→16:10)
[2017-12-30] MEDS: NIFEdipine XL 30 MG TAB PO SCH (08:30)
[2017-12-30] MEDS: Gabapentin 300 MG CAP PO SCH ×3 (08:30→20:53)
[2017-12-30] MEDS: hydrALAZINE 25 MG TAB PO SCH ×3 (08:30→21:05)
[2017-12-30] MEDS: Insulin Glargine 10 UNITS in Pre-Filled Syringe 1 EACH SC SCH (09:30)
--- NOTE | 2017-12-30 10:52 | PRG ---
DATE OF SERVICE: 12/30/2017 SERVICE: Renal Medicine. SUBJECTIVE: Mr. Daniel is a 57-year-old black male with chronic renal failure from diabetic nephropat hy and admitted for shortness of breath. He was found to be in some degree of CHF. He was also nesha herbert for presumptive pneumonia. He has been initiated on dialysis due to his progressive azotemia and CHF. He is feeling better. He underwent a 4-hour hemodialysis yesterday. We were able to remove s everal liters of fluid. This morning, he is feeling better. No chest pain or shortness of breath. OBJECTIVE: VITAL SIGNS: Blood pressure 133/63, heart rate 70. GENERAL: Awake, alert, sitting comfortable, not in distress. SKIN: Adequate turgor. HEENT: Slightly pale conjunctivae, anicteric sclerae. NECK: No neck mass, no carotid bruits, no JVD. CHEST: No deformities. Positive for right IJ dialysis catheter. LUNGS: Decreased breath sounds, no wheezing or crackles. HEART: Normal sinus rhythm. No murmur, no gallops, no rubs. ABDOMEN: Globular, soft, nontender. EXTREMITIES: Positive for edema. LABORATORY DATA: Of 12/30/2017, pending. MEDICATIONS: Of 12/30/2017 reviewed. ASSESSMENT AND PLAN: 1. Chronic renal failure from diabetic nephropathy/end-stage renal disease - patient has reached end -stage renal disease stage. Continuing 3 times a week hemodialysis. Fluid removal as tolerated. 2. Anemia, on weekly Epogen. 3. Shortness of breath, clinically improved with fluid removal. He has underlying congestive heart failure. We will recheck base met and CBC in a.m. He will also be scheduled for dialysis in a.m.
[2017-12-30] MEDS: Heparin 5,000 UNITS/ML VIAL SC SCH ×3 (11:27→20:54)
[2017-12-30] MEDS: Labetalol 100 MG TAB PO SCH ×2 (11:29→21:03)
[2017-12-30] MEDS: HYDROcodone/Acetaminophen 5/325 mg Tablet PO PRN ×2 (12:51→20:54)
[2017-12-30 13:36] LABS: #Eosinphils 0.1 thou/uL (0.0-0.7); #Lymphocytes 0.9 thou/uL (1.20-3.40); #Monocytes 1.1 thou/uL (0.11-0.59); #Neutrophils 7.9 thou/uL (1.40-6.50); %Basophils 0.2 % (0.0-1.0); %Eosinophils 0.7 % (0.0-10.0); %Monocytes 11.1 % (0.0-10.0); Hemoglobin 8.1 g/dL (14.0-18.0); Mean Corpuscular HGB CONC 30.5 g/dL (32.0-36.0); Mean Corpuscular Hemoglobin 22.4 pg (27.0-31.0); Mean Corpuscular Volume 73.6 fL (78.0-98.0); Mean Platelet Volume 10.2 fL (7.4-10.4); Platelet Count 211 thou/uL (130-400); RBC Distribution Width 17.1 % (11.5-14.5); Red Blood Cell (RBC) Count 3.61 mill/uL (4.70-6.10)
[2017-12-30] MEDS: HumaLOG 300 UNITS/3 ML VIAL SC PRN (16:10)
[2017-12-30 16:27] LABS: Anion Gap 21 mmol/L (10-20); BUN (Urea Nitrogen) 77 mg/dL (8.4-25.7); Calc. Creatinine Clearance 18 mL/min (70-130); Carbon Dioxide 23 mmol/L (22-29); Chloride 98 mmol/L (98-107); Estimated GFR-MDRD 12; Potassium 4.2 mmol/L (3.5-5.1); Sodium 138 mmol/L (136-145)
[2017-12-30 16:29] LABS: Glucose 184 mg/dL (70-105)
[2017-12-30] MEDS ORDERED: Tuberculin PPD 0.1 ML VIAL I-DERMAL SCH (17:00)
[2017-12-30 18:20] LABS: Elliptocytes SLIGHT = 2-5 cells (100X) (0-1/hpf); Hypochromia SLIGHT = 6-15 cells (100X) (0-5/hpf); PLT Morphology Comment Appears Adequate; Polychromasia SLIGHT = 2-3 cells (100X) (0-2/hpf)
--- NOTE | 2017-12-30 20:46 | PDOC.PN ---
- Subjective Encounter Start Date: 12/30/17 Encounter Start Time: 14:00 Patient seen and examined for Resp failure. No new CP/SOB. No other complaints. No overnight events - Objective Resuscitation Status: Resuscitation Status FULL:Full Resuscitation MAR Reviewed: Yes Vital Signs & Weight: Vital Signs (12 hours) Temp Pulse Resp BP BP Pulse Ox 12/30/17 18:54 84 16 92 L 12/30/17 15:40 80 20 12/30/17 14:54 85 152/58 H 12/30/17 12:00 97.7 F 85 16 152/58 H 92 L Weight Weight 207 lb 14.334 oz I&O: 12/29/17 12/30/17 12/31/17 06:59 06:59 06:59 Intake Total 1040 Output Total 3000 Balance -1960 Result Diagrams: 12/30/17 05:13 12/30/17 05:13 Additional Labs: Accuchecks 12/30/17 12/29/17 11:18 20:29 POC Glucose 266 H 151 H Phys Exam - Physical Examination Constitutional: NAD Respiratory: no wheezing, no rhonchi few bibasilar rales Cardiovascular: RRR, no rub Gastrointestinal: soft, positive bowel sounds Musculoskeletal: edema present (improving) Dx/Plan - Plan DVT proph w/heparin, DVT proph w/SCDs IMPRESSION: 1. Acute hypoxic respiratory failure due to volume overload - started on dialysis 2. SHELLY/CKD 3 / Hyperkalemia 3. Elevated troponins due to demand ischemia 4. HTN/ DM2 / Anemia due to chronic renal disease s/p 1 unit PRBC 5. s/p Code green for Hypotension with Toxic Metabolic Encephalopathy/ Obesity BMI 33.6 PLAN: Cont Dialysis per Nephro Cont sliding scale/Lantus Cont other meds as below Wean O2 Stable for dc - Outpt dialysis setup pending Review of Systems - Review of Systems Respiratory: negative: Cough, Dry, Shortness of Breath, Hemoptysis, SOB with Excertion, Pleuritic Pain, Sputum, Wheezing Cardiovascular: negative: chest pain, palpitations, orthopnea, paroxysmal nocturnal dyspnea, edema, light headedness, other - Medications/Allergies Allergies/Adverse Reactions: Allergies Allergy/AdvReac Type Severity Reaction Status Date / Time lisinopril Allergy Verified 12/22/17 18:04 Medications: Current Medications Acetaminophen (Tylenol) 650 mg PO Q4H PRN PRN Reason: Headache/Fever/Mild Pain (1-3) Last Admin: 12/22/17 20:45 Dose: 650 mg Acetaminophen (Tylenol) 650 mg [place] Q4H PRN PRN Reason: Headache/Fever/Mild Pain (1-3) Acetaminophen (Tylenol) 1,000 mg PO Q6H PRN PRN Reason: Moderate to Severe Pain (6-10) Hydrocodone Bitart/Acetaminophen ([place] 5/325) 1 tab PO Q4H PRN PRN Reason: Moderate Pain (4-6) Last Admin: 12/29/17 14:35 Dose: 1 tab Hydrocodone Bitart/Acetaminophen ([place] 5/325) 2 tab PO Q4H PRN PRN Reason: Severe Pain (7-10) Last Admin: 12/30/17 12:51 Dose: 2 tab Albuterol Sulfate (Ventolin) 2.5 mg NEB Q2H PRN PRN Reason: Wheezing Albuterol/Ipratropium (Duoneb) 3 ml NEB [id number] [facility] Last Admin: 12/30/17 18:54 Dose: 3 ml Cefazolin Sodium (Ancef) 2 gm SLOW IVP ONCALL-OR OBED Clonidine (Catapres) 0.1 mg PO Q6H PRN PRN Reason: SBP > 180 Last Admin: 12/27/17 02:19 Dose: 0.1 mg Dextrose/Water (Dextrose 50%) 25 gm SLOW IVP PRN PRN PRN Reason: Hypoglycemia Epoetin Eddy (Procrit) 7,500 units SC Q7D [facility] Last Admin: 12/29/17 20:36 Dose: 7,500 units Famotidine (Pepcid) 20 mg PO QPM [facility] Last Admin: 12/29/17 20:38 Dose: 20 mg Ferrous Sulfate (Feosol) 325 mg PO BID-WM [facility] Last Admin: 12/30/17 16:10 Dose: 325 mg Gabapentin (Neurontin) 600 mg PO TID [facility] Last Admin: 12/30/17 14:53 Dose: 600 mg Glucagon (Glucagon) 1 mg IM PRN PRN PRN Reason: Hypoglycemia Guaifenesin/Dextromethorphan (Robitussin Dm) 15 ml PO Q4H PRN PRN Reason: Cough Last Admin: 12/24/17 21:18 Dose: 15 ml Heparin Sodium (Porcine) (Heparin) 5,000 units SC TID [facility] Last Admin: 12/30/17 14:53 Dose: 5,000 units Hydralazine HCl (Apresoline) 100 mg PO TID [facility] Last Admin: 12/30/17 14:54 Dose: 100 mg Hydralazine HCl (Apresoline) 10 mg SLOW IVP Q4H PRN PRN Reason: SBP Greater Than 180 Last Admin: 12/27/17 00:10 Dose: 10 mg Dextrose/Water (D5w) 1,000 mls @ 0 mls/hr IV .Q0M PRN PRN Reason: Hypoglycemia Insulin Glargine 10 units/ (Miscellaneous Medication) 0.1 mls @ 0 mls/hr SC QAM [facility] Last Admin: 12/30/17 09:30 Dose: 0.1 mls Insulin Human Lispro (Humalog) 0 units SC .MODERATE SLIDING SC PRN PRN Reason: Moderate Correctional Scale Last Admin: 12/30/17 16:10 Dose: 8 unit Insulin Human Lispro (Humalog) 0 units SC .BEDTIME SLIDING SC PRN PRN Reason: Bedtime Correctional Scale Last Admin: 12/27/17 21:20 Dose: 3 unit Labetalol HCl (Normodyne) 100 mg PO BID [facility] Last Admin: 12/30/17 11:29 Dose: Not Given Nifedipine (Procardia Xl) 30 mg PO DAILY [facility] Last Admin: 12/30/17 08:30 Dose: 30 mg Nitroglycerin (Nitro-Bid 2% Ointment) 0.5 inch TOP DAILYPRN PRN PRN Reason: FOR SBP > 180 Read Ppd Test Site 0 each PO 1700 [facility] Stop: 01/02/18 17:01 Ondansetron HCl (Zofran Odt) 4 mg PO Q6H PRN PRN Reason: Nausea/Vomiting Ondansetron HCl (Zofran) 4 mg IVP Q6H PRN PRN Reason: Nausea/Vomiting Sodium Chloride (Flush - Normal Saline) 10 ml IVF Q12HR [facility] Last Admin: 12/30/17 08:30 Dose: 10 ml Sodium Chloride (Flush - Normal Saline) 10 ml IVF PRN PRN PRN Reason: Saline Flush Last Admin: 12/27/17 14:14 Dose: 10 ml Tramadol HCl (Ultram) 50 mg PO Q6H PRN PRN Reason: Pain 1-5
[2017-12-30] MEDS: Famotidine 20 MG TAB PO SCH (20:54)
--- NOTE | 2017-12-31 08:29 | PRG ---
DATE OF SERVICE: 12/31/2017 SERVICE: Renal Medicine. SUBJECTIVE: Mr. Daniel is a 57-year-old black male with acute kidney injury/chronic renal failure. Sussy jeffrey was dialyzed due to volume overload, progressive azotemia. I am currently at the bedside supervisi ng his dialysis. He is tolerating said treatment. He is feeling better with dialysis and fluid anuj verónica. PHYSICAL EXAMINATION: VITAL SIGNS: Blood pressure 165/76, heart rate 82, respiratory rate 22, temperature 98. GENERAL: Awake, alert, comfortable, not in distress. SKIN: Adequate turgor. HEENT: He has pale conjunctivae, anicteric sclerae. NECK: No neck mass, no carotid bruits, no JVD. CHEST: No deformities. LUNGS: Clear breath sounds. HEART: Normal sinus rhythm. No murmur, no gallops, no rubs. ABDOMEN: Globular, soft, nontender, no masses. EXTREMITIES: No edema, no deformities. MEDICATIONS: Of 12/31/2017 was reviewed. LABORATORY DATA: Of 12/30/2017, hemoglobin 8.1. Sodium 138, potassium 4.2, chloride 98, carbon diox gagandeep 23, BUN 77, creatinine 6.05, calcium 9.0. Hepatitis B and C negative. ASSESSMENT AND PLAN: 1. End-stage renal disease/chronic renal failure - tolerating hemodialysis. Max out fluid removal a s tolerated. Continue 3 times a week hemodialysis regimen. Awaiting outpatient placement. 2. Anemia - stable. Continue weekly Epogen. 3. Congestive heart failure, clinically improved with fluid removal with dialysis.
[2017-12-31] MEDS ORDERED: Heparin 10,000 UNITS/ 10 ML VIAL ONE (09:00)
[2017-12-31] MEDS: Gabapentin 300 MG CAP PO SCH ×3 (11:55→20:53)
[2017-12-31] MEDS: Heparin 5,000 UNITS/ML VIAL SC SCH ×3 (11:55→20:53)
[2017-12-31] MEDS: hydrALAZINE 25 MG TAB PO SCH ×3 (11:55→20:51)
[2017-12-31] MEDS: Insulin Glargine 10 UNITS in Pre-Filled Syringe 1 EACH SC SCH (11:56)
[2017-12-31] MEDS: Labetalol 100 MG TAB PO SCH ×2 (11:57→20:52)
[2017-12-31] MEDS: Ferrous Sulfate 325 MG TAB PO SCH ×2 (12:18→17:17)
[2017-12-31] MEDS: NIFEdipine XL 30 MG TAB PO SCH (12:18)
--- NOTE | 2017-12-31 19:13 | PDOC.PN ---
- Subjective Encounter Start Date: 12/31/17 Encounter Start Time: 08:30 Patient seen and examined for Resp failure. No new complaints. No overnight events - Objective Resuscitation Status: Resuscitation Status FULL:Full Resuscitation MAR Reviewed: Yes Vital Signs & Weight: Vital Signs (12 hours) Pulse Resp BP Pulse Ox 12/31/17 18:11 86 16 93 L 12/31/17 14:16 82 165/76 H 12/31/17 13:14 90 L 12/31/17 13:10 90 20 90 L 12/31/17 12:18 82 126/72 Weight Weight 207 lb 14.334 oz Result Diagrams: 01/01/18 03:37 01/01/18 03:37 Additional Labs: Accuchecks 12/31/17 12/31/17 12/30/17 15:53 04:42 21:08 POC Glucose 224 H 267 H 243 H 12/30/17 16:01 POC Glucose 368 H Phys Exam - Physical Examination Constitutional: NAD Respiratory: no wheezing, no rhonchi Cardiovascular: RRR, no rub Gastrointestinal: soft, non-tender, positive bowel sounds Musculoskeletal: edema present (improving) Neurological: non-focal, moves all 4 limbs Dx/Plan - Plan DVT proph w/SCDs IMPRESSION: 1. Acute hypoxic respiratory failure due to volume overload - started on dialysis 2. SHELLY/CKD 3 / Hyperkalemia 3. Elevated troponins due to demand ischemia 4. HTN/ DM2 / Anemia due to chronic renal disease s/p 1 unit PRBC 5. s/p Code green for Hypotension with Toxic Metabolic Encephalopathy/ Obesity BMI 33.6 PLAN: On room air Cont sliding scale/Lantus Cont other meds as below Cont Dialysis per Nephro Stable for dc - Outpt dialysis setup pending Review of Systems - Review of Systems Respiratory: negative: Cough, Dry, Shortness of Breath, Hemoptysis, SOB with Excertion, Pleuritic Pain, Sputum, Wheezing Cardiovascular: negative: chest pain, palpitations, orthopnea, paroxysmal nocturnal dyspnea, edema, light headedness, other - Medications/Allergies Allergies/Adverse Reactions: Allergies Allergy/AdvReac Type Severity Reaction Status Date / Time lisinopril Allergy Verified 12/22/17 18:04 Medications: Current Medications Acetaminophen (Tylenol) 650 mg PO Q4H PRN PRN Reason: Headache/Fever/Mild Pain (1-3) Last Admin: 12/22/17 20:45 Dose: 650 mg Acetaminophen (Tylenol) 650 mg [place] Q4H PRN PRN Reason: Headache/Fever/Mild Pain (1-3) Acetaminophen (Tylenol) 1,000 mg PO Q6H PRN PRN Reason: Moderate to Severe Pain (6-10) Hydrocodone Bitart/Acetaminophen ([place] 5/325) 1 tab PO Q4H PRN PRN Reason: Moderate Pain (4-6) Last Admin: 12/29/17 14:35 Dose: 1 tab Hydrocodone Bitart/Acetaminophen ([place] 5/325) 2 tab PO Q4H PRN PRN Reason: Severe Pain (7-10) Last Admin: 12/30/17 20:54 Dose: 2 tab Albuterol Sulfate (Ventolin) 2.5 mg NEB Q2H PRN PRN Reason: Wheezing Albuterol/Ipratropium (Duoneb) 3 ml NEB [id number] [facility] Last Admin: 12/31/17 18:11 Dose: 3 ml Cefazolin Sodium (Ancef) 2 gm SLOW IVP ONCALL-OR OBED Clonidine (Catapres) 0.1 mg PO Q6H PRN PRN Reason: SBP > 180 Last Admin: 12/27/17 02:19 Dose: 0.1 mg Dextrose/Water (Dextrose 50%) 25 gm SLOW IVP PRN PRN PRN Reason: Hypoglycemia Epoetin Eddy (Procrit) 7,500 units SC Q7D [facility] Last Admin: 12/29/17 20:36 Dose: 7,500 units Famotidine (Pepcid) 20 mg PO QPM [facility] Last Admin: 12/30/17 20:54 Dose: 20 mg Ferrous Sulfate (Feosol) 325 mg PO BID-WM [facility] Last Admin: 12/31/17 17:17 Dose: 325 mg Gabapentin (Neurontin) 600 mg PO TID [facility] Last Admin: 12/31/17 14:17 Dose: 600 mg Glucagon (Glucagon) 1 mg IM PRN PRN PRN Reason: Hypoglycemia Guaifenesin/Dextromethorphan (Robitussin Dm) 15 ml PO Q4H PRN PRN Reason: Cough Last Admin: 12/24/17 21:18 Dose: 15 ml Heparin Sodium (Porcine) (Heparin) 5,000 units SC TID [facility] Last Admin: 12/31/17 14:17 Dose: Not Given Hydralazine HCl (Apresoline) 100 mg PO TID [facility] Last Admin: 12/31/17 14:16 Dose: 100 mg Hydralazine HCl (Apresoline) 10 mg SLOW IVP Q4H PRN PRN Reason: SBP Greater Than 180 Last Admin: 12/27/17 00:10 Dose: 10 mg Dextrose/Water (D5w) 1,000 mls @ 0 mls/hr IV .Q0M PRN PRN Reason: Hypoglycemia Insulin Glargine 10 units/ (Miscellaneous Medication) 0.1 mls @ 0 mls/hr SC QAM [facility] Last Admin: 12/31/17 11:56 Dose: Not Given Insulin Human Lispro (Humalog) 0 units SC .MODERATE SLIDING SC PRN PRN Reason: Moderate Correctional Scale Last Admin: 12/30/17 16:10 Dose: 8 unit Insulin Human Lispro (Humalog) 0 units SC .BEDTIME SLIDING SC PRN PRN Reason: Bedtime Correctional Scale Last Admin: 12/27/17 21:20 Dose: 3 unit Labetalol HCl (Normodyne) 100 mg PO BID [facility] Last Admin: 12/31/17 11:57 Dose: Not Given Nifedipine (Procardia Xl) 30 mg PO DAILY [facility] Last Admin: 12/31/17 12:18 Dose: 30 mg Nitroglycerin (Nitro-Bid 2% Ointment) 0.5 inch TOP DAILYPRN PRN PRN Reason: FOR SBP > 180 Read Ppd Test Site 0 each PO 1700 [facility] Stop: 01/02/18 17:01 Ondansetron HCl (Zofran Odt) 4 mg PO Q6H PRN PRN Reason: Nausea/Vomiting Ondansetron HCl (Zofran) 4 mg IVP Q6H PRN PRN Reason: Nausea/Vomiting Sodium Chloride (Flush - Normal Saline) 10 ml IVF Q12HR [facility] Last Admin: 12/31/17 11:56 Dose: Not Given Sodium Chloride (Flush - Normal Saline) 10 ml IVF PRN PRN PRN Reason: Saline Flush Last Admin: 12/27/17 14:14 Dose: 10 ml Tramadol HCl (Ultram) 50 mg PO Q6H PRN PRN Reason: Pain 1-5
[2017-12-31] MEDS: Famotidine 20 MG TAB PO SCH (20:52)
[2017-12-31] MEDS: HumaLOG 300 UNITS/3 ML VIAL SC PRN (20:53)
[2018-01-01 05:18] LABS: Anion Gap 16 mmol/L (10-20); BUN (Urea Nitrogen) 51 mg/dL (8.4-25.7); Calc. Creatinine Clearance 19 mL/min (70-130); Calcium 8.7 mg/dL (7.8-10.44); Carbon Dioxide 28 mmol/L (22-29); Chloride 99 mmol/L (98-107); Estimated GFR-MDRD 12; Glucose 223 mg/dL (70-105); Magnesium 2.3 mg/dL (1.6-2.6); Potassium 3.8 mmol/L (3.5-5.1); Sodium 139 mmol/L (136-145)
[2018-01-01 05:55] LABS: Band 7 % (5-11); Eosinophils 2 % (0-10); Hemoglobin 7.9 g/dL (14.0-18.0); Lymphocytes 6 % (21-51); MDiff Complete? YES; Mean Corpuscular HGB CONC 30.1 g/dL (32.0-36.0); Mean Corpuscular Volume 73.1 fL (78.0-98.0); Mean Platelet Volume 11.6 fL (7.4-10.4); Monocytes 6 % (0-10); Neutrophil 79 % (42-75); Platelet Count 287 thou/uL (130-400); RBC Distribution Width 17.3 % (11.5-14.5); Red Blood Cell (RBC) Count 3.57 mill/uL (4.70-6.10)
[2018-01-01] MEDS: HYDROcodone/Acetaminophen 5/325 mg Tablet PO PRN (06:37)
[2018-01-01] MEDS: Insulin Glargine 10 UNITS in Pre-Filled Syringe 1 EACH SC SCH (09:09)
[2018-01-01] MEDS: Gabapentin 300 MG CAP PO SCH ×3 (09:10→20:28)
[2018-01-01] MEDS: Heparin 5,000 UNITS/ML VIAL SC SCH ×3 (09:10→20:35)
[2018-01-01] MEDS: Ferrous Sulfate 325 MG TAB PO SCH ×2 (09:10→15:47)
[2018-01-01] MEDS: hydrALAZINE 25 MG TAB PO SCH ×3 (09:11→20:29)
[2018-01-01] MEDS: Labetalol 100 MG TAB PO SCH ×2 (09:28→22:28)
[2018-01-01] MEDS: NIFEdipine XL 30 MG TAB PO SCH (09:58)
--- NOTE | 2018-01-01 14:06 | PRG ---
DATE OF SERVICE: 01/01/2018 SERVICE: Renal Medicine. SUBJECTIVE: Mr. Daniel is a 57-year-old black male, who was admitted for shortness of breath. Initia lly, he was thought to have pneumonia. However, review of the chest x-ray suggests he was in CHF. D ue to the volume overload and progressive azotemia, he was initiated on dialysis. He has been receiv ing dialysis. Fluid removal as tolerated. He is now clinically much improved. He has also been ane minerva and has been started on weekly Epogen. No new complaints today. REVIEW OF SYSTEMS: No chest pain or shortness of breath. PHYSICAL EXAMINATION: VITAL SIGNS: Blood pressure is 139/75, heart rate 84, respiratory rate 16, temperature is 99, pulse ox 96% on room air. GENERAL EXAM: Awake, alert, sitting comfortable, not in distress. SKIN: Adequate turgor. HEENT: He has slightly pale conjunctivae, anicteric sclerae. NECK: No neck mass, no carotid bruits, no JVD. CHEST: No deformities. LUNGS: Clear breath sounds. HEART: Normal sinus rhythm. No murmur, no gallops, no rubs. ABDOMEN: Globular, soft, nontender, no masses. EXTREMITIES: No edema, no deformities. Medications of 01/01/2018 reviewed. LABORATORY DATA: Laboratories of 01/01/2018, white count 10, hemoglobin 7.9. Sodium 139, potassium 3.8, chloride 99, carbon dioxide 28, BUN 51, creatinine 5.75, glucose 223, magnesium is 2.3, calcium 8.7. ASSESSMENT AND PLAN: 1. End-stage renal disease/chronic renal failure, stable. Tolerating current hemodialysis regimen. Received dialysis yesterday with several liters of fluid removed. Continue 3 times a week dialysis. Awaiting placement. 2. Anemia, currently on weekly Epogen and iron supplementation. 3. Congestive heart failure, clinically much improved with volume removal. Recheck base met and CBC in a.m. Agree with current management.
[2018-01-01] MEDS: READ PPD TEST SITE PO SCH (15:49)
[2018-01-01] MEDS: Famotidine 20 MG TAB PO SCH (20:29)
--- NOTE | 2018-01-01 22:31 | PDOC.PN ---
- Subjective Encounter Start Date: 01/01/18 Encounter Start Time: 11:20 - Objective Resuscitation Status: Resuscitation Status FULL:Full Resuscitation MAR Reviewed: Yes Vital Signs & Weight: Vital Signs (12 hours) Temp Pulse Resp BP BP Pulse Ox 01/01/18 22:28 88 148/70 H 01/01/18 20:29 88 148/70 H 01/01/18 20:00 97.5 F L 88 18 148/70 H 99 01/01/18 15:47 84 139/75 Weight Weight 207 lb 14.334 oz Result Diagrams: 01/01/18 03:37 01/01/18 03:37 Additional Labs: Accuchecks 01/01/18 01/01/18 01/01/18 20:36 15:36 11:29 POC Glucose 197 H 186 H 235 H 01/01/18 05:07 POC Glucose 244 H Phys Exam - Physical Examination Constitutional: NAD Respiratory: no wheezing, no rhonchi Cardiovascular: RRR, no rub Gastrointestinal: soft, non-tender, positive bowel sounds Musculoskeletal: no edema Neurological: moves all 4 limbs Dx/Plan - Plan DVT proph w/SCDs IMPRESSION: 1. Acute hypoxic respiratory failure due to volume overload 2. SHELLY/CKD 3/ESRD - started on dialysis 3. Elevated troponins due to demand ischemia 4. HTN/ DM2 / Anemia due to chronic renal disease s/p 1 unit PRBC 5. s/p Code green for Hypotension with Toxic Metabolic Encephalopathy - no new episode/ Obesity BMI 33.6 Hyperkalemia PLAN: Cont sliding scale/Lantus Cont other meds as below Cont Dialysis per Nephro Stable for dc - Outpt dialysis setup pending Review of Systems - Review of Systems Respiratory: negative: Cough, Dry, Shortness of Breath, Hemoptysis, SOB with Excertion, Pleuritic Pain, Sputum, Wheezing Cardiovascular: negative: chest pain, palpitations, orthopnea, paroxysmal nocturnal dyspnea, edema, light headedness, other - Medications/Allergies Allergies/Adverse Reactions: Allergies Allergy/AdvReac Type Severity Reaction Status Date / Time lisinopril Allergy Verified 12/22/17 18:04 Medications: Current Medications Acetaminophen (Tylenol) 650 mg PO Q4H PRN PRN Reason: Headache/Fever/Mild Pain (1-3) Last Admin: 12/22/17 20:45 Dose: 650 mg Acetaminophen (Tylenol) 650 mg TX Q4H PRN PRN Reason: Headache/Fever/Mild Pain (1-3) Acetaminophen (Tylenol) 1,000 mg PO Q6H PRN PRN Reason: Moderate to Severe Pain (6-10) Albuterol Sulfate (Ventolin) 2.5 mg NEB Q2H PRN PRN Reason: Wheezing Albuterol/Ipratropium (Duoneb) 3 ml IPPB [id number] PRN PRN Reason: SOB &/or Wheezing Cefazolin Sodium (Ancef) 2 gm SLOW IVP ONCALL-OR OBED Clonidine (Catapres) 0.1 mg PO Q6H PRN PRN Reason: SBP > 180 Last Admin: 12/27/17 02:19 Dose: 0.1 mg Dextrose/Water (Dextrose 50%) 25 gm SLOW IVP PRN PRN PRN Reason: Hypoglycemia Epoetin Eddy (Procrit) 7,500 units SC Q7D [facility] Last Admin: 12/29/17 20:36 Dose: 7,500 units Famotidine (Pepcid) 20 mg PO QPM [facility] Last Admin: 01/01/18 20:29 Dose: 20 mg Ferrous Sulfate (Feosol) 325 mg PO BID-WM [facility] Last Admin: 01/01/18 15:47 Dose: 325 mg Gabapentin (Neurontin) 600 mg PO TID [facility] Last Admin: 01/01/18 20:28 Dose: 600 mg Glucagon (Glucagon) 1 mg IM PRN PRN PRN Reason: Hypoglycemia Guaifenesin/Dextromethorphan (Robitussin Dm) 15 ml PO Q4H PRN PRN Reason: Cough Last Admin: 12/24/17 21:18 Dose: 15 ml Heparin Sodium (Porcine) (Heparin) 5,000 units SC TID [facility] Last Admin: 01/01/18 20:35 Dose: 5,000 units Hydralazine HCl (Apresoline) 100 mg PO TID [facility] Last Admin: 01/01/18 20:29 Dose: 100 mg Hydralazine HCl (Apresoline) 10 mg SLOW IVP Q4H PRN PRN Reason: SBP Greater Than 180 Last Admin: 12/27/17 00:10 Dose: 10 mg Dextrose/Water (D5w) 1,000 mls @ 0 mls/hr IV .Q0M PRN PRN Reason: Hypoglycemia Insulin Glargine 10 units/ (Miscellaneous Medication) 0.1 mls @ 0 mls/hr SC QAM [facility] Last Admin: 01/01/18 09:09 Dose: 0.1 mls Insulin Human Lispro (Humalog) 0 units SC .MODERATE SLIDING SC PRN PRN Reason: Moderate Correctional Scale Last Admin: 12/31/17 20:53 Dose: 8 unit Insulin Human Lispro (Humalog) 0 units SC .BEDTIME SLIDING SC PRN PRN Reason: Bedtime Correctional Scale Last Admin: 12/27/17 21:20 Dose: 3 unit Labetalol HCl (Normodyne) 100 mg PO BID [facility] Last Admin: 01/01/18 22:28 Dose: 100 mg Nifedipine (Procardia Xl) 30 mg PO DAILY [facility] Last Admin: 01/01/18 09:58 Dose: Not Given Nitroglycerin (Nitro-Bid 2% Ointment) 0.5 inch TOP DAILYPRN PRN PRN Reason: FOR SBP > 180 Read Ppd Test Site 0 each PO 1700 [facility] Stop: 01/02/18 17:01 Last Admin: 01/01/18 15:49 Dose: 1 each Ondansetron HCl (Zofran Odt) 4 mg PO Q6H PRN PRN Reason: Nausea/Vomiting Ondansetron HCl (Zofran) 4 mg IVP Q6H PRN PRN Reason: Nausea/Vomiting Sodium Chloride (Flush - Normal Saline) 10 ml IVF Q12HR [facility] Last Admin: 01/01/18 20:36 Dose: 10 ml Sodium Chloride (Flush - Normal Saline) 10 ml IVF PRN PRN PRN Reason: Saline Flush Last Admin: 12/27/17 14:14 Dose: 10 ml Tramadol HCl (Ultram) 50 mg PO Q6H PRN PRN Reason: Pain 1-5
[2018-01-02] MEDS: HumaLOG 300 UNITS/3 ML VIAL SC PRN ×3 (06:15→21:05)
[2018-01-02] MEDS: Gabapentin 300 MG CAP PO SCH ×3 (09:27→20:58)
[2018-01-02] MEDS: Ferrous Sulfate 325 MG TAB PO SCH ×2 (09:27→17:48)
[2018-01-02] MEDS: hydrALAZINE 25 MG TAB PO SCH ×3 (09:27→20:57)
[2018-01-02] MEDS: Insulin Glargine 10 UNITS in Pre-Filled Syringe 1 EACH SC SCH (09:28)
[2018-01-02] MEDS: Heparin 5,000 UNITS/ML VIAL SC SCH ×3 (09:28→20:58)
[2018-01-02] MEDS: Labetalol 100 MG TAB PO SCH ×2 (09:29→20:56)
[2018-01-02] MEDS: NIFEdipine XL 30 MG TAB PO SCH (09:32)
--- NOTE | 2018-01-02 10:03 | PRG ---
DATE OF SERVICE: 01/02/2018 SUBJECTIVE: Mr. Daniel is a 57-year-old black male who was admitted for uremic signs and symptoms. Sussy jeffrey was also in CHF. Due to the progressive azotemia and volume overload he was initiated on dialysis. He is now currently on hemodialysis 3 times a week. He was offered peritoneal dialysis. He declin ed for the moment. He has also been given option where he wants to go. He was offered to go to an [facility] unit versus a [facility]. He prefers to follow up with [facility]. No other comp laints today, no chest pain or shortness of breath. OBJECTIVE: VITAL SIGNS: Blood pressure 159/75, heart rate 82, respiratory rate 18, temperature 98.2, pulse ox 9 1%. GENERAL: Noted to be awake, alert, comfortable, not in distress. SKIN: Adequate turgor. HEENT: He has pale conjunctivae, anicteric sclerae. NECK: No neck mass, no carotid bruits, no JVD. CHEST: No deformities. LUNGS: Decreased breath sounds. HEART: Normal sinus rhythm. No murmur, no gallops or rubs. ABDOMEN: Globular, soft, nontender, no masses. EXTREMITIES: No edema, no deformities. MEDICATIONS: 01/02/2018 - Reviewed. LABORATORY: 01/01/2018 - White count 10, hemoglobin 7.9. Sodium 139, potassium 3.8, chloride 99, c arbon dioxide 28, BUN 51, creatinine 5.75, glucose 223, magnesium 2.3, calcium 8.7. ASSESSMENT AND PLAN: 1. End-stage renal disease/chronic renal failure, stable, continuing 3 times a week hemodialysis. S ocial work/case management consult for dialysis placement of the patient's choice. Please note that the [facility] dialysis is closed at the present time. 2. Anemia, continuing weekly Epogen. 3. Congestive heart failure, resolved. Fluid removal with dialysis. Recheck base met and CBC in a.m.
[2018-01-02 11:00] LABS: #Basophils 0.1 thou/uL (0.0-0.2); #Eosinphils 0.3 thou/uL (0.0-0.7); #Monocytes 0.3 thou/uL (0.11-0.59); #Neutrophils 9.2 thou/uL (1.40-6.50); %Basophils 0.5 % (0.0-1.0); %Lymphocytes 8.9 % (21.0-51.0); %Monocytes 2.6 % (0.0-10.0); %Neutrophils 85.1 % (42.0-75.0); Hemoglobin 8.2 g/dL (14.0-18.0); Mean Corpuscular HGB CONC 30.4 g/dL (32.0-36.0); Mean Corpuscular Hemoglobin 22.2 pg (27.0-31.0); Mean Corpuscular Volume 73.2 fL (78.0-98.0); Mean Platelet Volume 10.8 fL (7.4-10.4); Platelet Count 341 thou/uL (130-400); RBC Distribution Width 17.3 % (11.5-14.5); Red Blood Cell (RBC) Count 3.68 mill/uL (4.70-6.10); White Blood Cell (WBC) Count 10.9 thou/uL (4.8-10.8)
[2018-01-02 11:14] LABS: Anion Gap 18 mmol/L (10-20); BUN (Urea Nitrogen) 71 mg/dL (8.4-25.7); Calc. Creatinine Clearance 15 mL/min (70-130); Calcium 8.9 mg/dL (7.8-10.44); Carbon Dioxide 26 mmol/L (22-29); Chloride 101 mmol/L (98-107); Estimated GFR-MDRD 9; Glucose 140 mg/dL (70-105); Potassium 4.1 mmol/L (3.5-5.1); Sodium 141 mmol/L (136-145)
[2018-01-02 11:23] LABS: Hypochromia SLIGHT = 6-15 cells (100X) (0-5/hpf); MDiff Complete? YES; Microcytosis MODERATE=15-30 cells (100X) (0-5/hpf); Ovalocytes MODERATE= 6-15 cells (100X) (0-1/hpf); PLT Morphology Comment Appears Adequate; Polychromasia SLIGHT = 2-3 cells (100X) (0-2/hpf); Tear Drops SLIGHT = 2-5 cells (100X) (0-1/hpf)
--- NOTE | 2018-01-02 14:00 | PDOC.PN ---
- Subjective Encounter Start Date: 01/02/18 Encounter Start Time: 13:58 Subjective: alert, minimal discomfort in surgical site L arm - Objective Resuscitation Status: Resuscitation Status FULL:Full Resuscitation MAR Reviewed: Yes Vital Signs & Weight: Vital Signs (12 hours) Temp Pulse Resp BP BP Pulse Ox 01/02/18 11:00 98.0 F 82 18 154/77 H 91 L 01/02/18 09:32 82 159/75 H 01/02/18 09:29 82 159/75 H 01/02/18 09:27 82 159/75 H 01/02/18 08:00 91 L 01/02/18 07:12 98.2 F 82 18 159/75 H 91 L Weight Weight 207 lb 14.334 oz I&O: 01/01/18 01/02/18 01/03/18 06:59 06:59 06:59 Intake Total 240 Balance 240 Result Diagrams: 01/02/18 10:40 01/02/18 10:40 Additional Labs: Accuchecks 01/02/18 01/02/18 01/01/18 11:07 05:30 20:36 POC Glucose 158 H 180 H 197 H 01/01/18 15:36 POC Glucose 186 H Phys Exam - Physical Examination Neck: no JVD Respiratory: clear to auscultation bilateral Cardiovascular: RRR, no significant murmur Gastrointestinal: soft, positive bowel sounds Musculoskeletal: no edema, pulses present Dx/Plan (1) ESRD on dialysis Code(s): N18.6 - END STAGE RENAL DISEASE; Z99.2 - DEPENDENCE ON RENAL DIALYSIS Status: Acute (2) DM2 (diabetes mellitus, type 2) Status: Chronic Qualifiers: Diabetes mellitus terminal block assembler insulin use: without senior living use Diabetes mellitus complication status: with kidney complications Diabetes mellitus complication detail: with chronic kidney disease Chronic kidney disease stage : stage 3 (moderate) Qualified Code(s): E11.22 - Type 2 diabetes mellitus with diabetic chronic kidney disease; N18.3 - Chronic kidney disease, stage 3 ( moderate) Comment: restart long acting insulin (3) HTN (hypertension) Code(s): I10 - ESSENTIAL (PRIMARY) HYPERTENSION Status: Chronic Qualifiers: Hypertension type: essential hypertension Qualified Code(s): I10 - Essential (primary) hypertension (4) Anemia Code(s): D64.9 - ANEMIA, UNSPECIFIED Status: Acute Qualifiers: Anemia type: due to chronic kidney disease Chronic kidney disease stage: on chronic dialysis Qualified Code(s): N18.6 - End stage renal disease; D63.1 - Anemia in chronic kidney disease; Z99.2 - Dependence on renal dialysis - Plan DVT proph w/heparin cont HD, awaiting outpt site -: cont accu/ss glargine insulin -: cont nifedipine * .
[2018-01-02 14:19] VITALS: BMI 33.5
[2018-01-02] MEDS: traMADol HCl 50 MG TAB PO PRN (14:44)
--- NOTE | 2018-01-02 14:53 | PRG ---
DATE OF SERVICE: 01/02/2018 SUBJECTIVE: This morning, the patient is awake, alert, responsive, doing well, less short of breath. PHYSICAL EXAMINATION: VITAL SIGNS: Blood pressure is 159/75, sats are 91 on 1 liter, respiratory rate 18, temperature 98, pulse 82. CHEST: No wheezing or crackles. CARDIAC: Normal S1-S2. ABDOMEN: Soft, no masses. IMPRESSION: 1. End-stage renal failure. 2. Respiratory failure. 3. Fluid overload. 4. NO pneumonia. PLAN: Home when okay with Nephrology. Will follow. MTDD
[2018-01-02] MEDS: READ PPD TEST SITE PO SCH (18:50)
[2018-01-02] MEDS: Famotidine 20 MG TAB PO SCH (20:57)
[2018-01-03] MEDS: HumaLOG 300 UNITS/3 ML VIAL SC PRN (05:45)
[2018-01-03 06:17] LABS: #Basophils 0.1 thou/uL (0.0-0.2); #Eosinphils 0.2 thou/uL (0.0-0.7); #Lymphocytes 1.4 thou/uL (1.20-3.40); #Monocytes 0.9 thou/uL (0.11-0.59); #Neutrophils 8.1 thou/uL (1.40-6.50); %Basophils 0.5 % (0.0-1.0); %Lymphocytes 12.8 % (21.0-51.0); %Monocytes 8.8 % (0.0-10.0); Hemoglobin 7.4 g/dL (14.0-18.0); Mean Corpuscular HGB CONC 30.5 g/dL (32.0-36.0); Mean Corpuscular Hemoglobin 22.5 pg (27.0-31.0); Mean Corpuscular Volume 73.6 fL (78.0-98.0); Mean Platelet Volume 10.6 fL (7.4-10.4); Platelet Count 333 thou/uL (130-400); RBC Distribution Width 17.3 % (11.5-14.5); Red Blood Cell (RBC) Count 3.28 mill/uL (4.70-6.10); White Blood Cell (WBC) Count 10.6 thou/uL (4.8-10.8)
[2018-01-03 06:27] LABS: Anion Gap 15 mmol/L (10-20); BUN (Urea Nitrogen) 76 mg/dL (8.4-25.7); Calc. Creatinine Clearance 14 mL/min (70-130); Calcium 8.5 mg/dL (7.8-10.44); Carbon Dioxide 28 mmol/L (22-29); Chloride 102 mmol/L (98-107); Estimated GFR-MDRD 9; Glucose 297 mg/dL (70-105); Sodium 141 mmol/L (136-145)
[2018-01-03 07:20] VITALS: BP 162/77; TEMP 98.8
[2018-01-03] MEDS: Ferrous Sulfate 325 MG TAB PO SCH (08:25)
[2018-01-03] MEDS: Labetalol 100 MG TAB PO SCH (08:26)
[2018-01-03] MEDS: traMADol HCl 50 MG TAB PO PRN (08:36)
--- NOTE | 2018-01-03 09:07 | PDOC.PN ---
- Subjective Encounter Start Date: 01/03/18 Encounter Start Time: 09:06 Subjective: no chest pain, sob, etc - Objective Resuscitation Status: Resuscitation Status FULL:Full Resuscitation MAR Reviewed: Yes Vital Signs & Weight: Vital Signs (12 hours) Temp Pulse Resp BP Pulse Ox 01/03/18 08:26 80 01/03/18 07:17 98.8 F 80 18 162/77 H 94 L 01/03/18 04:00 98.6 F 87 18 157/72 H 91 L 01/03/18 02:37 99 01/03/18 00:00 98.4 F 85 18 145/75 H 93 L Weight Admit Weight 207 lb 14.334 oz Weight 207 lb 14.334 oz I&O: 01/02/18 01/03/18 01/04/18 06:59 06:59 06:59 Intake Total 600 Balance 600 Result Diagrams: 01/03/18 05:45 01/03/18 05:45 Additional Labs: Accuchecks 01/03/18 01/02/18 01/02/18 04:27 20:55 16:04 POC Glucose 296 H 202 H 224 H 01/02/18 12/30/17 11:07 04:16 POC Glucose 158 H 184 H Phys Exam - Physical Examination Constitutional: NAD Neck: no JVD Respiratory: clear to auscultation bilateral Cardiovascular: RRR, no significant murmur Gastrointestinal: soft, positive bowel sounds Musculoskeletal: edema present Dx/Plan (1) ESRD on dialysis Code(s): N18.6 - END STAGE RENAL DISEASE; Z99.2 - DEPENDENCE ON RENAL DIALYSIS Status: Acute (2) DM2 (diabetes mellitus, type 2) Status: Chronic Qualifiers: Diabetes mellitus terminal supervisor insulin use: without alf use Diabetes mellitus complication status: with kidney complications Diabetes mellitus complication detail: with chronic kidney disease Chronic kidney disease stage : stage 3 (moderate) Qualified Code(s): E11.22 - Type 2 diabetes mellitus with diabetic chronic kidney disease; N18.3 - Chronic kidney disease, stage 3 ( moderate) Comment: restart long acting insulin (3) HTN (hypertension) Code(s): I10 - ESSENTIAL (PRIMARY) HYPERTENSION Status: Chronic Qualifiers: Hypertension type: essential hypertension Qualified Code(s): I10 - Essential (primary) hypertension (4) Anemia Code(s): D64.9 - ANEMIA, UNSPECIFIED Status: Acute Qualifiers: Anemia type: due to chronic kidney disease Chronic kidney disease stage: on chronic dialysis Qualified Code(s): N18.6 - End stage renal disease; D63.1 - Anemia in chronic kidney disease; Z99.2 - Dependence on renal dialysis - Plan cont HD -: cont accu/ss/glargine -: cont nifedipine * .
--- NOTE | 2018-01-03 09:29 | PRG ---
DATE OF SERVICE: 01/03/2018 SUBJECTIVE: Mr. Daniel is a 57-year-old black male being followed up by the [facility] for his acu te kidney injury/chronic renal failure. He was initiated on dialysis due to volume overload and prog ressive azotemia. We are awaiting outpatient dialysis placement. The [facility] unit is closed. The patient will consider either [facility] or [facility]. No other complaints today. He is currently undergoing hemodialysis and I am at the bedside supervisi ng his dialysis. He denies any chest pain, shortness of breath. OBJECTIVE: VITAL SIGNS: Blood pressure is 162/77, heart rate 80, respiratory rate 18, temperature 98.8, pulse o x 98%. GENERAL: Noted to be awake, alert, comfortable, not in overt distress. SKIN: Adequate turgor. HEENT: He has slightly pale conjunctivae, anicteric sclerae. NECK: No neck mass, no carotid bruits, no JVD. CHEST: No deformities. LUNGS: Decreased breath sounds. HEART: Normal sinus rhythm. No murmur, no gallops, no rubs. ABDOMEN: Globular, soft, nontender, no masses. EXTREMITIES: No edema, no deformities. MEDICATIONS: 01/03/2018 - Reviewed. LABORATORY DATA: 01/03/2018 - White count is noted at 10.6, hemoglobin 7.4, sodium 141, potassium 4, chloride 102, carbon dioxide 28, BUN 76, creatinine 7.53, glucose 297, calcium 8.5. ASSESSMENT AND PLAN: 1. End-stage renal disease/chronic renal failure, stable. Continue current hemodialysis regimen. A waiting outpatient dialysis placement. Fluid removal as tolerated. 2. Anemia, stable. P.r.n. blood transfusion. Continuing weekly Epogen. 3. Congestive heart failure, clinically much improved. Overall, I agree with current management.
--- NOTE | 2018-01-03 09:58 | PRG ---
DATE OF SERVICE: 01/03/2018 This morning he is awake, alert, responsive, in no distress. PHYSICAL EXAMINATION: VITAL SIGNS: Sats 94% on room air, temperature 98, pulse 88, blood pressure 160/77, he is being dial yzed. CHEST: Chest revealed no wheezing or crackles. CARDIAC: Normal S1, S2. No gallops. ABDOMEN: Soft, no masses. LABORATORY: White count 10,000. Electrolytes are normal. Creatinine 7.5. IMPRESSION: 1. Chronic renal failure on dialysis. 2. Respiratory failure, resolved. 3. No evidence of pneumonia. PLAN: Pulmonary will see the patient in about a month in the office. Clearly his respiratory distress has resolved. Most of it is probably secondary to fluid overload.
[2018-01-03] MEDS: Gabapentin 300 MG CAP PO SCH (10:16)
[2018-01-03] MEDS: Heparin 5,000 UNITS/ML VIAL SC SCH ×2 (10:16→14:30)
[2018-01-03] MEDS: NIFEdipine XL 30 MG TAB PO SCH (10:17)
[2018-01-03] MEDS: hydrALAZINE 25 MG TAB PO SCH ×2 (10:17→14:27)
--- NOTE | 2018-01-03 11:40 | PQF ---
DATE: 01-03-18 ATTN: DR. HEDY SOTO Please exercise your independent, professional judgment in responding to the clarification form. Clinical indicators are provided on the bottom of this form for your review Please check appropriate box(s) to clarify if the following diagnosis has been ruled in or ruled out: CHF [ ] Ruled in diagnosis [ ] Continue to treat [ ] Resolved ; Acuity: Acute [ ] Chronic [ ], Type: Systolic [ ] Diastolic [ ] [ ] Ruled out diagnosis [ ] Other diagnosis [ ] Unable to determine In addition, please specify: Present on Admission (POA): [ ] Yes [ ] No [ ] Unable to determine For continuity of documentation, please document condition throughout progress notes and discharge summary. Thank You. CLINICAL INDICATORS - SIGNS / SYMPTOMS / LABS ER: HYPOXIA CONSULT DR. LEVY 12-23-17: RIGHT SIDED INFILTRATE AND RESP FAILURE, COMBINATION OF FLUID OVERLOAD AND POSSIBLY PNEUMONIA. CONSULT NOTE DR. NEWMAN 12-27-17: CONGESTIVE HEART FAILURE. MAXING OUT FLUID REMOVAL WITH DIALYSIS. ECHO 12-23-17: EF 55-60% BNP 12-22-17: 710.2 RISKS: H&P: HX OF CKD 3, HTN, DM 2, COPD, HYPERLIPIDEMIA TREATMENTS: CARDIOLOGY CONSULT 12-23-17: MOST RECENT CXR SHOWS EVIDENCE OF PULMONARY EDEMA. CLINICALLY, IT DOES NOT SEEM THAT IS ACUTE. HE MAY NEED A LITTLE DIURESIS TO SEE HOW HE DOES. RESP ASSESSMENT: 12-22-17: VENTURI MASK 50 12-24-17: O2 2L NC (This form is maintained as a part of the permanent medical record) 2014 [employer]. All Rights Reserved [email or web address] Office: [phone] [facility]ITAL[facility]
--- NOTE | 2018-01-03 11:55 | PQF ---
DATE: 01-03-18 ATTN: DR. HEDY SOTO Please exercise your independent, professional judgment in responding to the clarification form. Clinical indicators are provided on the bottom of this form for your review Please check appropriate box(s) to clarify if the following diagnosis has been ruled in or ruled out: PNEUMONIA [ ] Ruled in diagnosis [ ] Continue to treat [ ] Resolved [ ] Ruled out diagnosis [ ] Other diagnosis [ ] Unable to determine In addition, please specify: Present on Admission (POA): [ ] Yes [ ] No [ ] Unable to determine For continuity of documentation, please document condition throughout progress notes and discharge summary. Thank You. CLINICAL INDICATORS - SIGNS / SYMPTOMS / LABS: ER: HYPOXIA, TEMP: 102.4, OE SAT 86%, COUGH, SORE THROAT ER DX: SEPSIS, ACUTE RENAL FAILURE, HYPOXIA, NSTEMI, RHABDOMYOLYSIS, RIGHT SIDED PNEUMONIA CONSULT NOTE DR. LEVY 12-23-17: RIGHT SIDED INFILTRATE AND RESP FAILURE, COMBINATION OF FLUID OVERLOAD AND POSSIBLY PNEUMONIA CONSULT NOTE DR. NEWMAN 12-23-17: R-SIDED LOBE PNEUMONIA CONSULT NOTE DR. LOCKHART 12-24-17: R SIDED PNEUMONIA CONSULT NOTE DR. LEVY 01-02-18: NO PNEUMONIA CXR 12-22-17: RIGHT SIDED PNEUMONIA TEMP: ER: 102.4, 102.0, 101.3 RR: ER: 24, 24, 24, 24, 20, 20 WBC: 12-24-17: 12.3 RISK FACTORS: CONSULT NOTE DR. LEVY 12-22-17: MODERATE SEVERE COPD, WHEN HE ARRIVED HE WAS SOB, HE WAS HYPOXIC, HIS SATS WERE 81%, SMOKER TREATMENTS: PULMONARY CONSULT DR. LEVY 12-23-17: EMPIRIC ANTIBIOTICS ER: AZITHROMYCIN, CEFTRIAXONE IV (This form is maintained as a part of the permanent medical record) 2014 [employer]. All Rights Reserved [email or web address] Office: [phone] [facility]
[2018-01-03] MEDS ORDERED: Heparin 10,000 UNITS/ 10 ML VIAL ONE (12:00)
[2018-01-03] MEDS ORDERED: Gabapentin 300 MG CAP PO SCH (15:00)
--- NOTE | 2018-01-03 15:57 | DIS ---
DATE OF ADMISSION: 12/22/2017 DATE OF DISCHARGE: 01/03/2018 PRIMARY CARE PROVIDER: Fe Cheng D.O. DISPOSITION: Discharged to home. FINAL DIAGNOSES: Acute kidney failure resulting in end-stage renal disease, hypertension, volume ove rload, diabetes mellitus type 2 with renal complications, acute respiratory failure with hypoxia, ane dawson of chronic kidney disease. DISCHARGE MEDICATIONS: Insulin degludec 10 units subcu daily, ProAir HFA 2 puffs q.4 hours p.r.n., L ipitor 40 mg 1 a day, labetalol 100 mg b.i.d., ferrous sulfate 325 mg a day, aspirin 81 mg a day, vit faustin D3 5000 units daily, Apresoline 100 mg p.o. t.i.d., Procardia 30 mg a day, Neurontin 600 mg p.o. t.i.d. ALLERGIES: LISINOPRIL. CODE STATUS: FULL. DIET: Diabetic. PENDING AT TIME OF DISCHARGE: Nothing. CONSULTATIONS: Dr. Beck Taylor, Nephrology; Dr. Ramiro Faustin, Pulmonology; Dr. Dane Banuelos, Cardi ology; Dr. Srinvias Cottrell, General Surgery. HOSPITAL COURSE: I unable to find a Sound history and physical on the chart. ED provider's note sta britta the patient came in with hypoxia. He was told his oxygen level was low. He had a fever of 102. The patient was placed in the hospital with acute renal failure, hypoxia, elevated enzymes. Consult ation by Dr. Ramiro Faustin. His O2 sats were 81, blood pressure 170/80, pulse 80. X-ray showed a right- sided infiltrate. ADMITTING DIAGNOSES: Right-sided infiltrates and respiratory failure, combination of fluid overload and possible pneumonia, diabetes, renal failure, cardiomyopathy. His initial BUN and creatinine were 61/5.4. He was started on antibiotics. Consultation by Dr. Beck Taylor. Agreed with acute renal failure and no reason for acute hemodialysis. Renal ultrasound, no hydronephrosis. FOLLOWUP LABORATORY: CBC: White count 10.0, hemoglobin 8.2, platelet count 173,000. Follow up chem istries revealed a creatinine of 5.44, BUN of 69. Troponins were 0.445 and 0.418. CK was 1623. The patient was followed with Accu-Cheks, sliding scale, placed on antibiotics. His respiratory and blo od cultures proved to be normal. Initial chest x-ray as mentioned showed a right-sided infiltrate an d pulmonary vascular congestion on the left. Follow up chest x-ray the next day showed dramatic napier ges most consistent with pulmonary edema. Echocardiogram was done, EF 55%-60%, mild LVH. Dr. Don Nuñez saw the patient for Cardiology. Agree with pulmonary edema, worsening. Attempts were made to diurese the patient. On 12/25/2017, progress note, the patient had episode of unresponsive. Danielle lysis was suggested to the patient. He was reluctant on 12/26/2017. A right groin Trialysis cathete r was placed. Hemodialysis was initiated on 12/28/2017, showed an improvement in his pulmonary edema , significant cardiomegaly on supine film persisted. The patient improved steadily from that time, lesvia nevarez now has a clear chest. Blood pressure medicines were adjusted, some discontinued and some started. The patient is doing well at this time. His current laboratory shows creatinine of 7.53, BUN of 76, normal electrolytes. Blood sugars in the 200 plus or minus range. CBC: White count 10.6, hemoglobin 7.4, platelet count 333,000. PHYSICAL EXAMINATION: GENERAL: The patient is being discharged for outpatient dialysis Tuesday, , and Tuesday. Arash reganently been assigned to a dialysis unit in [place]. 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 He has been asked to follow up with his primary care provider, Dr. Fe Cheng in 7 d ays to follow up with Dr. Srinivas Cottrell in 3-4 weeks. PENDING AT TIME OF DISCHARGE: Nothing. Status doing well. VITAL SIGNS: At time of discharge, 128/66, pulse 83, respirations 16. Cardiorespiratory exam normal .
== END 2018-01-03 17:39 | disposition home or self-care (01) | DRG 673 ==
LOC: ERS 13:44 → IMCU/EMU 16:13 → 2SE 12-25 18:09 → IMCU/EMU 12-25 18:31 → T4-A 12-28 11:33
PROVIDERS: ADMIT Internal Medicine Infectious Disease; ATTEND Internal Medicine Infectious Disease
PROC: 5A09357 Assistance with Respiratory Ventilation, Less than 24 Consecutive Hours, Continuous Positive Airway Pressure (ICD-10-PCS; principal; 2017-12-25)
PROC: 06HY33Z Insertion of Infusion Device into Lower Vein, Percutaneous Approach (ICD-10-PCS; 2017-12-26)
PROC: 5A1D70Z Performance of Urinary Filtration, Intermittent, Less than 6 Hours Per Day (ICD-10-PCS; 2017-12-26)
PROC: 30233N1 Transfusion of Nonautologous Red Blood Cells into Peripheral Vein, Percutaneous Approach (ICD-10-PCS; 2017-12-26)
PROC: 03180JF Bypass Left Brachial Artery to Lower Arm Vein with Synthetic Substitute, Open Approach (ICD-10-PCS; 2017-12-28)
PROC: 0JH63XZ Insertion of Tunneled Vascular Access Device into Chest Subcutaneous Tissue and Fascia, Percutaneous Approach (ICD-10-PCS; 2017-12-28)
PROC: 02HV33Z Insertion of Infusion Device into Superior Vena Cava, Percutaneous Approach (ICD-10-PCS; 2017-12-28)
DX: N17.9 Acute kidney failure, unspecified (principal); J96.01 Acute respiratory failure with hypoxia; G92 Toxic encephalopathy; I42.8 Other cardiomyopathies; I12.0 Hypertensive chronic kidney disease with stage 5 chronic kidney disease or end stage renal disease; I24.8 Other forms of acute ischemic heart disease; N18.6 End stage renal disease; T82.868A Thrombosis due to vascular prosthetic devices, implants and grafts, initial encounter; I35.1 Nonrheumatic aortic (valve) insufficiency; E87.5 Hyperkalemia; J44.9 Chronic obstructive pulmonary disease, unspecified; E11.22 Type 2 diabetes mellitus with diabetic chronic kidney disease; D63.1 Anemia in chronic kidney disease; E11.319 Type 2 diabetes mellitus with unspecified diabetic retinopathy without macular edema; E66.9 Obesity, unspecified; Z87.891 Personal history of nicotine dependence; Z79.82 Long term (current) use of aspirin; Z68.33 Body mass index [BMI] 33.0-33.9, adult; Z88.8 Allergy status to other drugs, medicaments and biological substances
CPT/HCPCS: 36415; 36416; 36430; 71045; 71046; 76770; 80048; 80053; 81003; 81015; 82553; 82728; 83520; 83540; 83550; 83605; 83735; 83880; 84146; 84484; 85025; 86038; 86225; 86256; 86580; 86704; 86706; 86803; 86850; 86900; 86901; 87040; 87070; 87205; 87340; 90471; 90670; 90686; 90732; 90935; 93005; 93306; 93970; 94640; 94660; 96361; 96365; 96367; C1752; C1769; G0008; G0009; G0257; G0365; J0360; J0456; J0670; J0696; J1265; J1642; J1644; J1815; J1940; J1956; J2704; J2720; J2920; J7050; J7620; L8670; P9016; P9047; Q4081; Q9967

== ENCOUNTER 2019-09-04 12:23 | Outpatient (CLI) | payer OTHER ==
--- NOTE | 2019-09-04 12:48 | ULT ---
EXAM: Left lower extremity venous ultrasound HISTORY: Left lower extremity pain and edema COMPARISON: None TECHNIQUE: Multiplanar grayscale and color Doppler images were obtained in a left lower extremity chrissy ous ultrasound. Spectral analysis of the Doppler waveforms were performed. FINDINGS: The common femoral vein, profunda femoral vein, superficial femoral vein, and popliteal vei n are normal in appearance without visible thrombus. These vessels demonstrate normal compression, flow, and augmentation. The posterior tibial vein and greater saphenous vein are patent without evidence of thrombus. There are prominent left inguinal lymph nodes. IMPRESSION: No evidence of DVT.
== END 2019-09-04 12:24 | disposition home or self-care (01) ==
LOC: BICULT 12:23
PROVIDERS: ATTEND Family Medicine
DX: M79.89 Other specified soft tissue disorders (principal)